=== PATIENT | female | born 1930 | race Caucasian/White ===

== ENCOUNTER 2017-06-19 13:07 | Inpatient (IN) | payer MEDICARE, OTHER ==
--- NOTE | 2017-06-19 14:19 | RAD ---
LEFT HIP TWO VIEWS: History: 86-year-old female with left hip pain following a fall from standing. FINDINGS: There is a minimally displaced minimally impacted left subcapital femoral neck fracture. Minimal bon y demineralization. Prominent vascular calcification. IMPRESSION: Minimally displaced impacted subcapital left femoral neck fracture with slight foreshortening. POS: [facility]
--- NOTE | 2017-06-19 14:20 | RAD ---
CHEST ONE VIEW: History: Fall, chest injury. Comparison: 03-22-17 FINDINGS: Cardiac silhouette is magnified and enlarged. Pulmonary vasculature is unremarkable. Lungs remain hy perinflated. Mediastinum is midline with aortic calcification. Osseous structures are demineralized. stop attacher leads overlie the chest. IMPRESSION: 1. Cardiomegaly. 2. COPD. 3. Atherosclerosis. POS: [facility]
--- NOTE | 2017-06-19 14:22 | RAD ---
AP PELVIS: Date: 06-19-17 History: Patient fell earlier today from a standing position and landed on left hip. Patient has lef t hip pain and pain upon movement of the left hip. Comparison: 03-22-17 FINDINGS: There has been interval development of a subcapital left femoral neck fracture with the distal fract ure fragment slightly displaced medially. There is a right total hip prosthesis also noted in place which was not present on the prior exam. No additional fracture seen. There is no evidence of a disl ocation. There is osteopenia. IMPRESSION: 1. Slightly displaced subcapital left femoral neck fracture. 2. Right total hip prosthesis. POS: [facility]
[2017-06-19 14:49] LABS: PTT 35.2 SEC (22.9-36.1); Prothrombin Time 16.9 SEC (12.0-14.7)
[2017-06-19 14:50] LABS: Hematocrit 30.8 % (36.0-47.0); Red Blood Cell (RBC) Count 3.19 mill/uL (4.20-5.40); White Blood Cell (WBC) Count 18.5 thou/uL (4.8-10.8)
[2017-06-19 15:05] LABS: ALT (SGPT) 14 U/L (8-55); AST (SGOT) 31 U/L (5-34); Alkaline Phosphatase 106 U/L (40-150); Anion Gap 12 mmol/L (10-20); BUN (Urea Nitrogen) 40 mg/dL (9.8-20.1); Calc. Creatinine Clearance 0 mL/min (70-130); Calcium 9.6 mg/dL (7.8-10.44); Carbon Dioxide 24 mmol/L (23-31); Chloride 101 mmol/L (98-107); Estimated GFR-MDRD 22; Globulin 4.8 g/dL (2.4-3.5); Protein, Total 8.4 g/dL (6.0-8.3)
[2017-06-19 15:24] LABS: Anisocytosis MODERATE=16-30 cells (100X) (0-5/hpf); Band 15 % (5-11); Basophilic Stippling SLIGHT = 1-2 cells (100X) (None Seen); Elliptocytes MODERATE= 6-15 cells (100X) (0-1/hpf); Metamyelocyte 4 % (0-0); Myelocyte 12 % (0-0); Neutrophil 25 % (42-75); Nucleated RBC 4 % (0); Ovalocytes SLIGHT = 2-5 cells (100X) (0-1/hpf); Polychromasia MODERATE = 3-4 cells (100X) (0-2/hpf); Reactive Lymphocytes 1 % (0-10); Schistocytes SLIGHT = 2-5 cells (100X) (0-1/hpf); Spherocytes SLIGHT = 1-5 cells (100X) (None Seen)
[2017-06-19] MEDS ORDERED: Morphine 10 MG/ML VIAL ONE (16:03)
[2017-06-19] MEDS ORDERED: Ondansetron HCl/PF 4 MG/2 ML Vial IVP PRN (17:11)
[2017-06-19] MEDS ORDERED: Dextrose 50% Abboject 50 ML SYRINGE SLOW IVP PRN (17:11)
[2017-06-19] MEDS ORDERED: hydrALAZINE 20 MG/ML VIAL SLOW IVP PRN (17:11)
[2017-06-19] MEDS ORDERED: Dextrose 5% in Water 1,000 ML IV PRN (17:11)
[2017-06-19] MEDS ORDERED: traMADol HCl 50 MG TAB PO PRN (17:11)
[2017-06-19] MEDS ORDERED: Morphine 4 MG/ML Carpuject IVP PRN (17:11)
[2017-06-19] MEDS ORDERED: Ondansetron ODT 4 MG TAB PO PRN (17:11)
--- NOTE | 2017-06-19 18:10 | HP ---
DATE OF ADMISSION: 05/19/2017 REQUESTING PHYSICIAN: Loi Fischer M.D. ATTENDING PHYSICIAN: Armin Macedo M.D. CONSULTATIONS: Orthopedics, Dylon Garcia M.D. HISTORY OF PRESENT ILLNESS: The patient is an 86-year-old woman who was at her assisted l iving facility today, awaiting to go to a doctor's appointment when she fell in the lobby area. The patient denied any loss of consciousness. She was immediately tentative to nearby attendance, denise chapman to the emergency department, evaluated and examined and noted to have a left femoral neck fractu re at which time we were asked to evaluate the patient for admission and obtained orthopedic consult ation. ALLERGIES: None. CURRENT MEDICATIONS: The patient is trying to get her medication list from the facility that her so n is attempting to help with that. Otherwise, we are awaiting her medication list. PAST MEDICAL HISTORY: Anemia, hyperkalemia, thrombocytopenia, hypertension, and rheumatoid arthriti s. PAST SURGICAL HISTORY: Right partial hip replacement and . SOCIAL HISTORY: The patient drinks rarely. Denies drug use and no tobacco use. The patient is a r esident of assisted living at the [facility]. REVIEW OF SYSTEMS: A ten-point review of systems is negative unless otherwise stated. PHYSICAL EXAMINATION: VITAL SIGNS: Blood pressure 142/63, heart rate 75, respirations 18, and oxygen saturation is 98% on room air. GENERAL: The patient is resting comfortably, sitting in the emergency room bed. She is alert and o riented x3. [address] coma scale is 15. HEENT: Normocephalic and atraumatic. Eyes: Extraocular motion intact. PERRLA bilaterally. Ears are atraumatic without discharge. Nose is atraumatic without discharge. Oropharynx is clear. NECK: Nontender. Trachea is midline. No JVD. CHEST: Clear to auscultation with good inspiratory and expiratory effort. HEART: Regular rate and rhythm. ABDOMEN: Soft, flat, and nontender. PELVIS: Stable. The patient is tender to palpation to left hip area. EXTREMITIES: Neurovascularly intact x4. Strength is 5/5. BACK: Nontender and atraumatic. LABORATORY FINDINGS: White blood cell count 18.5, hemoglobin 9.1, hematocrit 30.8, and platelets 10 8. Sodium 132, potassium 5.2, chloride 101, CO2 of 24, BUN 40, creatinine 2.16, and glucose 107. L FTs are unremarkable. INR 1.3, PT 16.9, PTT 35.2. RADIOGRAPHS: AP pelvis show slightly displaced subcapital left femoral neck fracture. Two views of the hip show minimally displaced impacted subcapital left femoral neck fracture. AP repeat chest s hows cardiomegaly, COPD, and atherosclerosis. ASSESSMENT AND PLAN: 1. Status post ground level fall. 2. Left hip fracture. PLAN: Plan will be to admit the patient to the surgical floor. Per conversation with Dr. Garcia, the patient will have surgery tomorrow for her hip fracture. We will do pain control, pulmonary hari let, gastritis, mechanical DVT prophylaxis. The evaluation examination, laboratory and radiographic findings were all discussed with the patient, Dr. Macedo and her family at time of dictation and all were in agreement with this plan. Questions were answered at that time.
[2017-06-19] MEDS: Acetaminophen 325 MG TAB PO SCH (18:26)
[2017-06-19] MEDS: Sodium Chloride 0.9% 1,000 ML IV SCH (18:26)
[2017-06-19 19:16] VITALS: BMI 19.5
[2017-06-19] MEDS: Famotidine/PF 20 mg/2ml Vial SLOW IVP SCH (21:06)
[2017-06-19] MEDS: traMADol HCl 50 MG TAB PO PRN (21:07)
[2017-06-19] MEDS ORDERED: CEFAZOLIN/Water 2 GM/20 ML SYRINGE SLOW IVP SCH (21:15)
[2017-06-20] MEDS: Acetaminophen 325 MG TAB PO SCH ×4 (00:03→18:35)
--- NOTE | 2017-06-20 00:06 | CON ---
DATE OF CONSULTATION: 06/19/2017 HISTORY OF PRESENT ILLNESS: Ms. Alexander is an 86-year-old white female, who lives at an [facility] facility. The patient was waiting to go to a doctor's appointment, fell in the lobby area of [facility] and had immediate pain in the left hip area. The patient was brought to the emergency room and x-rays revealed an impacted femoral neck fracture of the left hip. The patient denies neurologic complaints in the left lower extremity. PAST MEDICAL HISTORY AND MEDICAL ILLNESSES: Hypertension, rheumatoid arthritis, hyperkalemia, throm bocytopenia, and history of anemia. ALLERGIES: None. CURRENT MEDICATIONS: Please see list from the assisted living facility. PAST SURGICAL HISTORY: The patient had proximal femoral replacement of the right hip approximately 3 months ago and has had a in the past. PHYSICAL EXAMINATION: GENERAL: The patient is a very pleasant female, alert and oriented x3. VITAL SIGNS: The patient is afebrile, blood pressure 142/63, heart rate 75, respiratory rate 18. HEENT: Unremarkable for age. Cranial nerves II through XII are grossly intact. EXTREMITIES: The patient is able to move both upper extremities without pain. She has good range o f motion in the right hip without pain, well-healed scar in the lateral aspect of the hip. The left hip skin is in good condition. Left lower extremity is neurovascularly intact. No attempts were m elen at movement of the hips since it is known that she has a fracture. IMPRESSION: 1. Impacted subcapital femoral neck fracture of the left hip. 2. Hypertension. 3. Rheumatoid arthritis. 4. History of anemia. 5. Thrombocytopenia. PLAN: The patient will be admitted to the surgical floor as far as her left hip is concerned since its impacted femoral neck fracture and there is no significant arthritis in the left hip. She would be best served with multiple cannulated screws to the left hip to allow the fracture to heal. She keeps her own bone. The potential risks with the condition of surgery include, but are not limited to infection, bleeding, pain, damage to blood vessels or nerves, nonunion, malunion. The patient addi lópez require additional surgery. She may ultimately require a proximal femoral replacement. The patie nt and her son's questions were answered and agreed to the procedure. We will schedule this for paty .
[2017-06-20] MEDS: Sodium Chloride 0.9% 1,000 ML IV SCH ×3 (02:00→19:17)
[2017-06-20 04:33] LABS: Anion Gap 11 mmol/L (10-20); BUN (Urea Nitrogen) 36 mg/dL (9.8-20.1); Calc. Creatinine Clearance 16 mL/min (70-130); Calcium 8.6 mg/dL (7.8-10.44); Carbon Dioxide 22 mmol/L (23-31); Chloride 107 mmol/L (98-107); Estimated GFR-MDRD 23; Magnesium 1.9 mg/dL (1.6-2.6); Phosphorus 4.1 mg/dL (2.3-4.7)
[2017-06-20 04:58] LABS: Hematocrit 27.1 % (36.0-47.0); Mean Platelet Volume 10.4 fL (7.4-10.4); Red Blood Cell (RBC) Count 2.79 mill/uL (4.20-5.40); White Blood Cell (WBC) Count 19.8 thou/uL (4.8-10.8)
[2017-06-20 04:59] LABS: Band 13 % (5-11); Metamyelocyte 2 % (0-0); Neutrophil 31 % (42-75); Nucleated RBC 5 % (0)
[2017-06-20] MEDS ORDERED: Tetracaine HCl/PF 1% 20 MG/2 ML AMP ONE (07:33)
[2017-06-20] MEDS ORDERED: CEFAZOLIN/Water 2 GM/20 ML SYRINGE ONE (09:00)
[2017-06-20] MEDS ORDERED: Fentanyl 100 MCG/2 ML VIAL ONE (09:57)
[2017-06-20] MEDS ORDERED: Propofol 200 MG/20 ML VIAL ONE (10:09)
[2017-06-20] MEDS ORDERED: Ondansetron HCl/PF 4 MG/2 ML Vial ONE (10:09)
[2017-06-20] MEDS ORDERED: Lidocaine 1% PF 5 ML VIAL ONE (10:09)
[2017-06-20] MEDS ORDERED: Ketorolac Tromethamine 30 MG/ML VIAL ONE (10:09)
[2017-06-20] MEDS ORDERED: Glycopyrrolate 0.2 MG/ML 5 ML SYRINGE ONE (10:09)
[2017-06-20] MEDS ORDERED: Bupivacaine PF 0.5% 30 ML VIAL ONE (10:43)
[2017-06-20] MEDS ORDERED: PROVENTIL INHALER 6.7 G (200 INHALATIONS) INH PRN (10:56)
[2017-06-20] MEDS ORDERED: DEXTROMETHORPHAN PO PRN (10:56)
[2017-06-20] MEDS ORDERED: Docusate Calcium (SURFAK) 240 MG CAP PO PRN (10:56)
[2017-06-20] MEDS ORDERED: BENZOCAINE PO PRN (10:56)
[2017-06-20] MEDS ORDERED: [UNRECOGNIZED DRUG - OTHER] PO PRN (10:56)
[2017-06-20] MEDS ORDERED: Acetaminophen 325 MG TAB PO PRN ×2 (10:56→11:21)
[2017-06-20] MEDS ORDERED: Ondansetron HCl/PF 4 MG/2 ML Vial IVP PRN ×2 (11:01→11:15)
[2017-06-20] MEDS ORDERED: Cepastat Lozenges 1 LOZ PO PRN (11:01)
[2017-06-20] MEDS ORDERED: Ondansetron ODT 4 MG TAB PO PRN (11:01)
[2017-06-20] MEDS ORDERED: Bisacodyl 10 MG SUPP PR PRN (11:01)
[2017-06-20] MEDS ORDERED: Fleet Enema 133 ML BOT PR PRN (11:01)
[2017-06-20] MEDS ORDERED: Milk Of Magnesia 30 ML UDCUP PO PRN (11:01)
--- NOTE | 2017-06-20 12:13 | RAD ---
THREE INTRAOPERATIVE FLUOROSCOPIC IMAGES LEFT HIP: 06/20/2017 HISTORY: ORIF. COMPARISON: 06/19/2017 FINDINGS: Fluoroscopic images demonstrate post surgical changes related to internal fixation of the subcapital left femoral neck fracture. Two screws transfix the left femoral neck fracture. No hardware compl ication is seen. No other interval change. IMPRESSION: Post surgical changes related to internal fixation of subcapital left femoral neck fracture. POS: [facility]
--- NOTE | 2017-06-20 13:28 | OP ---
DATE OF OPERATION: 06/20/2017 PREOPERATIVE DIAGNOSIS: Impacted femoral neck fracture of the left hip. POSTOPERATIVE DIAGNOSIS: Impacted femoral neck fracture of the left hip. PROCEDURE: Multiple cannulated screws of the impacted femoral neck fracture of the left hip. SURGEON: Dylon Garcia M.D. ANESTHESIA: General. TECHNIQUE: The patient was given preoperative IV antibiotics, taken to the operating room and place d in the supine position. Satisfactory general anesthesia was performed. The patient was placed on the fracture table. All bony prominences were well padded. The lateral aspect of the left hip and thigh were sterilely prepped and draped in the usual fashion. A 1 cm incision was made on the late ral aspect of the proximal thigh laterally and under fluoroscopic visualization, 2 guide pins were p laced up through the lateral aspect of the proximal femur into the femoral neck crossing the impacte d femoral neck fracture and into the femoral head. Proper placement of screws was verified with C-a rm with fluoroscopy, AP, lateral and multiple oblique views. The outer cortex was over reamed and t wo 7.3 cannulated screws were inserted into the femoral neck and head providing good internal fixati on and stability for the impacted femoral neck fracture. The wound was irrigated with antibiotic so lution. It was closed using 3-0 Rapide, 20 mL 0.5% Marcaine plain was injected in and around the in cision. The patient was taken off of the fracture table. She was awakened, extubated, and transfer red to recovery room in stable condition. ESTIMATED BLOOD LOSS: 10 mL. COMPLICATIONS: None.
[2017-06-20] MEDS: hydrALAZINE 25 MG TAB PO SCH (20:14)
[2017-06-20] MEDS: Ferrous Gluconate 324 MG TAB PO SCH (20:14)
[2017-06-20] MEDS: Famotidine/PF 20 mg/2ml Vial SLOW IVP SCH (20:14)
[2017-06-20] MEDS: Senokot S 8.6-50 MG TAB PO SCH (20:14)
[2017-06-20] MEDS: Hydroxychloroquine Sulfate 200 MG TAB PO SCH (20:15)
[2017-06-20] MEDS: Oxybutynin ER 5 MG TAB PO SCH (20:15)
--- NOTE | 2017-06-20 20:24 | PRG ---
DATE OF SERVICE: 06/20/2017 SUBJECTIVE: The patient is hospital day #2 status post ground level fall in which she sustained a l eft hip fracture. She is currently scheduled to go to the operating room with Dr. Garcia [facility]. She has been n.p.o. overnight. Her pain has been controlled and she has no current complaints . OBJECTIVE: VITAL SIGNS: Temperature is 98.2, heart rate 69, blood pressure 187/67, respirations are 16, oxygen saturation 98% on room air. GENERAL: The patient is resting comfortably in bed. She is alert and oriented x3. [place] is 15. HEENT: Unremarkable. HEART: Regular rate and rhythm. LUNGS: Clear to auscultation bilaterally with good inspiratory and expiratory effort. ABDOMEN: Soft, flat, nontender. EXTREMITIES: Neurovascularly intact. LABORATORY DATA: White blood cell count 19.8, hemoglobin 8.1, hematocrit 27.1, platelets 89. Sodiu m 135, potassium 4.6, chloride 107, CO2 of 22, BUN 36, creatinine 2.03, glucose 78, magnesium 1.9, p hosphorus 4.1. There are no radiographs to review this morning. ASSESSMENT AND PLAN: Status post ground level fall sustaining a left hip fracture, awaiting surgica l repair by Dr. Garcia. Postoperatively, we will continue pain management, pulmonary toilet, gastr itis prophylaxis, begin physical and occupational therapy, and ask rehabilitation to evaluate the pa tient. The evaluation was done with Dr. Sweeney on the surgical floor.
[2017-06-21] MEDS: Acetaminophen 325 MG TAB PO SCH ×5 (00:18→23:32)
[2017-06-21] MEDS: Sodium Chloride 0.9% 1,000 ML IV SCH ×3 (00:18→23:32)
[2017-06-21 04:44] LABS: Anion Gap 11 mmol/L (10-20); BUN (Urea Nitrogen) 33 mg/dL (9.8-20.1); Calc. Creatinine Clearance 18 mL/min (70-130); Calcium 8.5 mg/dL (7.8-10.44); Carbon Dioxide 20 mmol/L (23-31); Chloride 109 mmol/L (98-107); Estimated GFR-MDRD 28; Magnesium 1.6 mg/dL (1.6-2.6); Phosphorus 3.9 mg/dL (2.3-4.7)
[2017-06-21 05:05] LABS: Band 28 % (5-11); Elliptocytes SLIGHT = 2-5 cells (100X) (0-1/hpf); Hematocrit 28.9 % (36.0-47.0); Mean Platelet Volume 12.1 fL (7.4-10.4); Metamyelocyte 5 % (0-0); Myelocyte 3 % (0-0); Neutrophil 21 % (42-75); Nucleated RBC 3 % (0); Polychromasia SLIGHT = 2-3 cells (100X) (0-2/hpf); Reactive Lymphocytes 1 % (0-10); Red Blood Cell (RBC) Count 2.99 mill/uL (4.20-5.40); White Blood Cell (WBC) Count 29.3 thou/uL (4.8-10.8)
[2017-06-21] MEDS: Losartan 25 MG TAB PO SCH (09:00)
[2017-06-21] MEDS: hydrALAZINE 25 MG TAB PO SCH ×2 (09:00→20:04)
[2017-06-21] MEDS: predniSONE 5 MG TAB PO SCH (09:01)
[2017-06-21] MEDS: Oxybutynin ER 5 MG TAB PO SCH ×2 (09:01→20:05)
[2017-06-21] MEDS: Senokot S 8.6-50 MG TAB PO SCH ×2 (09:01→20:04)
[2017-06-21] MEDS: Multivitamin W/ Minerals 1 TAB PO SCH (09:01)
[2017-06-21] MEDS: Ferrous Gluconate 324 MG TAB PO SCH ×2 (09:01→20:05)
[2017-06-21] MEDS: Hydroxychloroquine Sulfate 200 MG TAB PO SCH ×2 (09:01→20:05)
[2017-06-21] MEDS: Furosemide 20 MG TAB PO SCH (09:01)
[2017-06-21] MEDS ORDERED: Magnesium Sulfate 3 GM in Sodium Chloride 0.9% 250 ML 250 ML IVPB SCH (19:00)
[2017-06-21] MEDS: Famotidine/PF 20 mg/2ml Vial SLOW IVP SCH (20:05)
--- NOTE | 2017-06-21 21:32 | PRG ---
DATE OF SERVICE: 06/21/2017 SUBJECTIVE: Ms. Alexander is status post multiple pinning of impacted femoral neck fracture of the le ft hip. Patient states that she is doing well and has very little pain. She has been able to work with physical therapy as far as getting out of bed. OBJECTIVE: GENERAL: The patient has been afebrile. VITAL SIGNS: Her last vital signs, pulse 75, respiratory rate 20, blood pressure 154/72, O2 saturat ion is 95%. EXTREMITIES: over the lateral aspect of the left thigh is healing very well. She has minimal swelling. The left lower extremity is neurovascularly intact. LABORATORY DATA: Shows hemoglobin is 8.7 and hematocrit is 28.9, which is actually higher than preo peratively. PLAN: The patient will continue to work with physical therapy. She may weightbear as tolerated on the left lower extremity. She will work on gait training and becoming more independent in getting o ut of bed.
--- NOTE | 2017-06-21 21:33 | PRG ---
DATE OF SERVICE: 06/21/2017 SUBJECTIVE: The patient is hospital day #3, postop day #1 status post ground level fall in which lew dobbins sustained a left hip fracture. The patient underwent open reduction and internal fixation of her hip fracture yesterday, which she tolerated well this morning. She is tolerating a diet. Her pain is controlled and she is waiting to begin working with physical and occupational therapy. PHYSICAL EXAMINATION: VITAL SIGNS: Temperature is 98.3, heart rate 70, blood pressure 154/75, respirations 16, oxygen sat uration is 95% on room air. GENERAL: The patient is resting comfortably in bed. She is alert and oriented x3. [place] coma sc garrett is 15. HEENT: Unremarkable. LUNGS: Clear to auscultation with moderate inspiratory and expiratory effort. The patient does hav e some scant crackles that do clear with cough and encouragement of taking deep breaths. HEART: Regular rate and rhythm. ABDOMEN: Soft, flat, nontender. Her surgical site is clean, dry, and intact. EXTREMITIES: She is neurovascularly intact x4 in all extremities. LABORATORY RESULTS: White blood cell count 29.3, hemoglobin 8.7, and platelets 87. Sodium 135, pot assium 5.0, chloride 109, CO2 of 20, BUN 33, creatinine 1.75, glucose 51, magnesium 1.6, phosphorus 3.9. There are no radiographs to review this morning. ASSESSMENT AND PLAN: 1. Status post ground level fall. 2. Left femoral neck fracture status post placement of multiple cannulated screws of the impacted f emoral neck fracture of the left hip. 3. Hypoglycemia. 4. Leukocytosis. Plan will be to continue pulmonary toilet, gastritis, mechanical deep venous thrombosis prophylaxis. Repeat labs in the morning. We will replace her electrolytes this morning. PT, OT evaluations an d rehab evaluation. The evaluation was done on the surgical floor with Dr. Sweeney.
[2017-06-22] MEDS: Acetaminophen 325 MG TAB PO SCH ×4 (00:17→18:13)
[2017-06-22] MEDS: traMADol HCl 50 MG TAB PO PRN (04:21)
[2017-06-22 04:37] LABS: Hematocrit 28.5 % (36.0-47.0); Mean Platelet Volume 11.4 fL (7.4-10.4); Red Blood Cell (RBC) Count 2.97 mill/uL (4.20-5.40); White Blood Cell (WBC) Count 40.1 thou/uL (4.8-10.8)
[2017-06-22 04:46] LABS: Band 14 % (5-11); Hematocrit 28.3 % (36.0-47.0); Metamyelocyte 7 % (0-0); Myelocyte 3 % (0-0); Neutrophil 19 % (42-75); Nucleated RBC 1 % (0); Ovalocytes MODERATE= 6-15 cells (100X) (0-1/hpf); Red Blood Cell (RBC) Count 2.93 mill/uL (4.20-5.40); White Blood Cell (WBC) Count 40.8 thou/uL (4.8-10.8)
[2017-06-22 05:10] LABS: Anion Gap 14 mmol/L (10-20); BUN (Urea Nitrogen) 30 mg/dL (9.8-20.1); Calc. Creatinine Clearance 18 mL/min (70-130); Calcium 8.6 mg/dL (7.8-10.44); Carbon Dioxide 17 mmol/L (23-31); Chloride 105 mmol/L (98-107); Estimated GFR-MDRD 27; Magnesium 2.6 mg/dL (1.6-2.6); Phosphorus 3.1 mg/dL (2.3-4.7)
[2017-06-22 08:11] LABS: Bilirubin Negative (Negative); Blood, Urine Trace (Negative); Glucose, Urine (Dipstick) Negative (Negative); Ketone, Urine Negative (Negative); Nitrite Negative (Negative); Protein, Urine (Dipstick) 30 mg/dL (Neg-Trace); Urobilinogen 0.2 mg/dL (0.2-1.0)
[2017-06-22 08:12] LABS: Bacteria/HPF None Seen HPF (None Seen); Hyaline Casts/LPF 0-3 HYALINE CAST LPF (0-3 Hyaline); RBC/HPF 0-3 HPF (0-3); Squamous Epithelial 0-3 HPF (0-3); WBC/HPF 0-3 HPF (0-3)
[2017-06-22 08:25] LABS: Yeast-All Forms None Seen HPF (None Seen)
--- NOTE | 2017-06-22 08:55 | RAD ---
CHEST 1 VIEW PORTABLE: HISTORY: An 87-year-old female with coughing. COMPARISON: 06/19/17. FINDINGS: Minimal cardiomegaly. Bilateral interstitial and linear parenchymal changes and pleural effusions, n ew from 06/19/17, evidence for congestive heart failure versus bilateral atypical pneumonitis. IMPRESSION: Cardiomegaly with bilateral vascular congestion and interstitial changes and pleural effusion changes having more the appearance of congestive heart failure versus atypical bilateral pneumonia or pneumo nitis. Short-term followup for clearing. POS: OFF
[2017-06-22] MEDS: hydrALAZINE 25 MG TAB PO SCH ×2 (09:03→21:49)
[2017-06-22] MEDS: Multivitamin W/ Minerals 1 TAB PO SCH (09:03)
[2017-06-22] MEDS: Oxybutynin ER 5 MG TAB PO SCH ×2 (09:03→21:49)
[2017-06-22] MEDS: Senokot S 8.6-50 MG TAB PO SCH ×3 (09:03→22:12)
[2017-06-22] MEDS: Losartan 25 MG TAB PO SCH (09:04)
[2017-06-22] MEDS: predniSONE 5 MG TAB PO SCH (09:04)
[2017-06-22] MEDS: Furosemide 20 MG TAB PO SCH (09:04)
[2017-06-22] MEDS: Ferrous Gluconate 324 MG TAB PO SCH ×2 (09:04→21:49)
[2017-06-22] MEDS: Hydroxychloroquine Sulfate 200 MG TAB PO SCH ×2 (09:04→21:50)
[2017-06-22] MEDS: Sodium Chloride 0.9% 1,000 ML IV SCH (09:05)
--- NOTE | 2017-06-22 13:17 | PRG-2 ---
DATE OF SERVICE: 06/22/2017 ATTENDING PHYSICIAN: Dr. Rush Sweeney SUBJECTIVE: This is an 87-year-old woman hospital day #4, postop day #2 status post ground level fa ll in which she sustained a left hip fracture. She underwent open reduction and internal fixation o f her hip fracture. Today she is tolerating pain well. Additionally, she is tolerating p.o. intake . The patient worked with physical therapy and occupational therapy yesterday. The patient has not had a bowel movement since admission. She is awaiting rehab evaluation and possible placement. Th e patient mentioned that she was on antibiotics for her sinusitis prior to admission for left hip fr acture; however, she is currently asymptomatic in that regard and antibiotic is not recommended at t his time. PHYSICAL EXAMINATION: VITAL SIGNS: Blood pressure 161/74, pulse 75, respiratory rate 24, O2 saturation 92% on 1 liter, te mperature 97.8 degrees Fahrenheit. GENERAL: The patient is resting comfortably in bed. She is alert and oriented x3. [place] is 15. HEENT: Head is atraumatic and normocephalic. LUNGS: Clear to auscultation bilaterally. Equal rise and fall of chest, no acute respiratory distr ess. She does have a dry cough on exam. The patient encouraged to keep taking deep breaths and usi ng incentive spirometer. CARDIOVASCULAR: Regular rate and rhythm. ABDOMEN: Soft, nontender. Surgical site is clean, dry, and intact. EXTREMITIES: Neurovascularly intact x4 in all extremities. LABORATORY DATA: CBC reveals a white blood cell count of 40.8, hemoglobin 8.8, hematocrit of 28.3, platelets of 92. BMP reveals sodium 132, potassium 4.3, chloride 105, bicarbonate 17, BUN of 30, creatinine of 1.78, and glucose of 150. Chest x-ray this morning shows cardiomegaly with bilateral vascular congestion and interstitial afrr ges. Pleural effusion changes have appearance of congestive heart failure versus atypical bilateral pneumonia or pneumonitis. ASSESSMENT AND PLAN: 1. Status post ground level fall day #4. 2. Postop day 2, status post open reduction internal fixation of left hip fracture. 3. Hypoglycemia, resolved. 4. Leukemoid reaction. 5. Hypertension. The patient to continue using incentive spirometer. A BNP was checked to evaluate for congestive he art failure exacerbation. The patient's blood pressure not well controlled on current medication re jose guadalupe. Metoprolol was changed to 100 mg b.i.d. Since the patient has not had a bowel movement sinc e admission, Lactulose was added daily until bowel movement. The patient is agreeable with rehab. Rehab will request patient have a bowel movement prior to acceptance. Of note, the elevated white b lood cell count is secondary to leukemoid reaction which is presumably from stress reaction after le ft hip fracture and surgery. There are no concerns regarding the white count at this time as patien t has remained afebrile, normotensive and asymptomatic. The patient was seen and evaluated by Dr. Abdoul Sweeney. The plan was discussed with the patient. All questions were answered.
[2017-06-22] MEDS ORDERED: Furosemide 20 MG TAB PO SCH (14:30)
[2017-06-22] MEDS: Metoprolol Tartrate 100 MG TAB PO SCH (21:50)
[2017-06-23] MEDS: Acetaminophen 325 MG TAB PO SCH ×3 (00:12→11:55)
[2017-06-23 04:57] LABS: Anion Gap 13 mmol/L (10-20); BUN (Urea Nitrogen) 29 mg/dL (9.8-20.1); Calc. Creatinine Clearance 20 mL/min (70-130); Carbon Dioxide 19 mmol/L (23-31); Chloride 103 mmol/L (98-107); Estimated GFR-MDRD 30; Magnesium 2.1 mg/dL (1.6-2.6)
[2017-06-23 04:59] LABS: Band 5 % (5-11); Hematocrit 27.1 % (36.0-47.0); Metamyelocyte 4 % (0-0); Myelocyte 2 % (0-0); Neutrophil 35 % (42-75); Nucleated RBC 1 % (0); Red Blood Cell (RBC) Count 2.79 mill/uL (4.20-5.40); White Blood Cell (WBC) Count 28.6 thou/uL (4.8-10.8)
[2017-06-23] MEDS: Metoprolol Tartrate 100 MG TAB PO SCH (09:01)
[2017-06-23] MEDS: Multivitamin W/ Minerals 1 TAB PO SCH (09:01)
[2017-06-23] MEDS: Ferrous Gluconate 324 MG TAB PO SCH (09:01)
[2017-06-23] MEDS: Hydroxychloroquine Sulfate 200 MG TAB PO SCH (09:02)
[2017-06-23] MEDS: Senokot S 8.6-50 MG TAB PO SCH (09:02)
[2017-06-23] MEDS: Losartan 25 MG TAB PO SCH (09:03)
[2017-06-23] MEDS: Furosemide 20 MG TAB PO SCH (09:03)
[2017-06-23] MEDS: hydrALAZINE 25 MG TAB PO SCH (09:03)
[2017-06-23] MEDS: Oxybutynin ER 5 MG TAB PO SCH (09:03)
[2017-06-23] MEDS: predniSONE 5 MG TAB PO SCH (09:04)
[2017-06-23] MEDS ORDERED: Furosemide 20 MG/2 ML VIAL SLOW IVP SCH (10:45)
[2017-06-23 11:57] VITALS: BP 129/57; TEMP 97.9
[2017-06-23] MEDS ORDERED: Furosemide 20 MG TAB PO SCH (12:15)
[2017-06-23] MEDS ORDERED: Epoetin 40,000 UNITS/ML VIAL SC SCH (14:15)
--- NOTE | 2017-06-23 17:17 | DIS ---
DATE OF ADMISSION: 06/19/2017 DATE OF DISCHARGE: 06/23/2017 BRIEF ADMISSION HISTORY AND PHYSICAL EXAMINATION FINDINGS: This is an 87-year-old woman who had a g round level fall, sustained a left hip fracture. PRINCIPAL PROCEDURES: On 06/20/2017, she underwent multiple cannulated screws impacted femoral neck fracture of the left hip. HOSPITAL COURSE: The patient continued to do well postoperatively. On the surgical floor, she was noted to have a large spike in white blood cell count with no infectious process and is continuing t o trend down. She has had bowel movements. Chemistry seems to be improving. Also BNP has been dec reasing as well. Vital signs have been stable. She remained on 2 liters of nasal cannula of oxygen , but lung sounds remain clear. The patient was cleared for discharge after administration of anoth er 20 [address] of [address]ix by Dr. Sweeney at bedside, to be moved over to inpatient rehabilitation. DISCHARGE CONDITION: Fair. DISCHARGE DISPOSITION: To inpatient rehabilitation. All questions were answered at bedside. We wi ll also contact Dr. Vang at the patient's request for an update on the patient's condition. This is merely a trauma discharge summary, please refer to the chart for further information.
[2017-06-24] MEDS ORDERED: Furosemide 20 MG TAB PO SCH (09:00)
--- NOTE | 2017-06-24 10:45 | PQF ---
ELVIN ROMERO MICHEAL, [place] [id number] SURG A- [id number] CLINICAL DOCUMENTATION IMPROVEMENT CLARIFICATION FORM: ICD-10 Updated PLEASE DO AN ADDENDUM TO THE PROGRESS NOTE WITH ANY DOCUMENTATION UPDATES OR ADDITIONS AND CARRY THROUGH TO DC SUMMARY. THANK YOU. Date: 06-24-17 ATTN: [facility] [employer] Please exercise your independent, professional judgment in responding to the clarification form. Clinical indicators are provided on the bottom of this form for your review Please check appropriate box(s): [ ] Protein Calorie Malnutrition: [ ] Mild [ ] Moderate [ ] Severe [ ] Other Malnutrition (please specify) __ [ ] Underweight without malnutrition [ ] Cachexia [ ] Other diagnosis [ ] Unable to determine In addition, please specify: Present on Admission (POA): [ ] Yes [ ] No [ ] Unable to determine CLINICAL INDICATORS - SIGNS / SYMPTOMS / LABS BMI 19.5 NUTRITION ASSESSMENT: CACHECTIC APPEARANCE MUSCLE/FAT WASTING TO ARMS, CHEST, CLAVICLES WOUNDCARE ASSESSMENT 115 : DTI - BACK LEFT BUTTOCK PU STAGE 2 ER: 3+ EDEMA LE PRESENT RISK FACTORS H&P ADVANCED AGE ANEMIA TREATMENT: NUTRITION ASSESSMENT - RECOMMEND: CONTINUE HEART HEALTHY LOW SODIUM DIET KATLIN DAILY SUPPLEMENT VITAMIN C 500 MG W/ ZINC SULFATE 220 MG DAILY X 14 DAYS TO PROMOTE WOUND HEALING THANK YOU, AYANNA (This form is maintained as a part of the permanent medical record) 2014 [employer]. All Rights Reserved Ayanna Kinney RN, BS [email or web address] [facility] CENTERMichaela
--- NOTE | 2017-08-08 16:46 | EKG ---
Test Reason : Blood Pressure : / mmHG Vent. Rate : 077 BPM Atrial Rate : 077 BPM P-R Int : 172 ms QRS Dur : 074 ms QT Int : 380 ms P-R-T Axes : 064 070 066 degrees QTc Int : 430 ms Normal sinus rhythm Normal ECG Confirmed by ALONZO ALDRICH, MARVIN ([id number]), tape editor AILYN STERLING ([id number]) on 08/08/2017 4:46:33 PM Referred By: Confirmed By:MARVIN ROSADO MD
== END 2017-06-23 15:43 | DRG 482 ==
LOC: ERS 13:07 → SURG A 14:09
PROVIDERS: ADMIT Surgery; ATTEND Surgery
PROC: 0QS704Z Reposition Left Upper Femur with Internal Fixation Device, Open Approach (ICD-10-PCS; principal; 2017-06-20)
PROC: 30233N1 Transfusion of Nonautologous Red Blood Cells into Peripheral Vein, Percutaneous Approach (ICD-10-PCS; 2017-06-20)
DX: S72.012A Unspecified intracapsular fracture of left femur, initial encounter for closed fracture (principal); L89.322 Pressure ulcer of left buttock, stage 2; D69.6 Thrombocytopenia, unspecified; M06.9 Rheumatoid arthritis, unspecified; I10 Essential (primary) hypertension; W18.30XA Fall on same level, unspecified, initial encounter; Y92.098 Other place in other non-institutional residence as the place of occurrence of the external cause; Z96.641 Presence of right artificial hip joint; E16.2 Hypoglycemia, unspecified; D72.823 Leukemoid reaction
CPT/HCPCS: 36415; 36416; 36430; 71010; 72170; 76001; 80048; 80053; 81003; 81015; 83735; 83880; 84100; 85025; 85027; 85610; 85730; 86850; 86900; 86901; 87040; 87086; 93005; 94640; 96374; C1713; C1769; G8978-GP-CK; G8979-GP-CJ; G8987-GO-CM; G8988-GO-CK; J0360; J1885; J2001; J2270; J2405; J2704; J3010; J3475; J7050; J7620; P9016; S0020; S0028

== ENCOUNTER 2017-08-01 14:11 | Emergency (ER) | payer MEDICARE, OTHER ==
[2017-08-01] MEDS ORDERED: traMADol HCl 50 MG TAB ONE (15:34)
== END 2017-08-01 15:47 | disposition home or self-care (01) ==
LOC: ERS 14:11
DX: H60.91 Unspecified otitis externa, right ear (principal); H66.91 Otitis media, unspecified, right ear; I10 Essential (primary) hypertension; D64.9 Anemia, unspecified; E87.5 Hyperkalemia; D69.6 Thrombocytopenia, unspecified; M19.90 Unspecified osteoarthritis, unspecified site
CPT/HCPCS: 99282

== ENCOUNTER 2017-08-26 11:49 | Outpatient (CLI) | payer MEDICARE, OTHER | END 2017-08-26 11:50 | disposition home or self-care (01) | LOC: BICRAD 11:49 | PROVIDERS: ATTEND Internal Medicine | DX: R05 Cough (principal); J18.9 Pneumonia, unspecified organism | CPT/HCPCS: 71046 ==

== ENCOUNTER 2017-09-02 15:09 | Outpatient (CLI) | payer MEDICARE | END 2017-09-02 15:10 | disposition home or self-care (01) | LOC: BICRAD 15:09 | PROVIDERS: ATTEND Internal Medicine | DX: R05 Cough (principal); J98.4 Other disorders of lung | CPT/HCPCS: 71046 ==

== ENCOUNTER 2017-09-28 12:13 | Inpatient (IN) | payer MEDICARE ==
[2017-09-28 13:21] LABS: Hemoglobin 8.5 g/dL (12.0-16.0); Mean Corpuscular Hemoglobin 30.1 pg (27.0-31.0); RBC Distribution Width 27.7 % (11.5-14.5); Red Blood Cell (RBC) Count 2.81 mill/uL (4.20-5.40); White Blood Cell (WBC) Count 29.8 thou/uL (4.8-10.8)
[2017-09-28] MEDS ORDERED: Clindamycin/D5W 600 mg/50 ml Premix Bag ONE (13:27)
[2017-09-28 13:34] LABS: ALT (SGPT) 19 U/L (8-55); AST (SGOT) 39 U/L (5-34); Albumin 3.3 g/dL (3.4-4.8); Alkaline Phosphatase 126 U/L (40-150); Anion Gap 15 mmol/L (10-20); BUN (Urea Nitrogen) 38 mg/dL (9.8-20.1); Bilirubin, Total 1.7 mg/dL (0.2-1.2); Calc. Creatinine Clearance 0 mL/min (70-130); Calcium 9.6 mg/dL (7.8-10.44); Carbon Dioxide 22 mmol/L (23-31); Chloride 100 mmol/L (98-107); Estimated GFR-MDRD 20; Globulin 5.1 g/dL (2.4-3.5); Glucose 104 mg/dL (83-110); Protein, Total 8.4 g/dL (6.0-8.3); Sodium 132 mmol/L (136-145)
[2017-09-28 13:35] LABS: Acanthocytes SLIGHT = 1-5 cells (100X) (None Seen); Anisocytosis MODERATE=16-30 cells (100X) (0-5/hpf); Band 15 % (5-11); Basophilic Stippling SLIGHT = 1-2 cells (100X) (None Seen); Elliptocytes SLIGHT = 2-5 cells (100X) (0-1/hpf); Large Platelets SLIGHT; Lymphocytes 14 % (21-51); MDiff Complete? YES; Macrocytosis SLIGHT = 6-15 cells (100X) (0-5/hpf); Mean Platelet Volume 12.9 fL (7.4-10.4); Metamyelocyte 3 % (0-0); Monocytes 26 % (0-10); Myelocyte 5 % (0-0); Neutrophil 35 % (42-75); Nucleated RBC 4 % (0); Ovalocytes SLIGHT = 2-5 cells (100X) (0-1/hpf); PLT Morphology Comment Appears Adequate; Platelet Count 210 thou/uL (130-400); Poikilocytosis MODERATE=16-30 cells (100X) (0-5/hpf); Polychromasia MODERATE = 3-4 cells (100X) (0-2/hpf); Promyelocytes 1 % (0-0); Reactive Lymphocytes 1 % (0-10); Schistocytes SLIGHT = 2-5 cells (100X) (0-1/hpf); Spherocytes SLIGHT = 1-5 cells (100X) (None Seen); Target Cells SLIGHT = 2-5 cells (100X) (0-1/hpf); Tear Drops SLIGHT = 2-5 cells (100X) (0-1/hpf)
[2017-09-28 13:39] LABS: CKMB 4.7 ng/mL (0-6.6); Troponin I 0.015 ng/mL (< 0.028)
[2017-09-28] MEDS ORDERED: Furosemide 20 MG/2 ML VIAL ONE (14:00)
--- NOTE | 2017-09-28 14:08 | RAD ---
AP PELVIS: Date: 09/28/17 HISTORY: Pelvic pain and pain to right hip. FINDINGS: The bones appear demineralized. Pelvic ring appears intact without evidence of fracture. Right hip pr osthesis is in place. There are also orthopedic screws present within the left hip. Vascular calcific ations are seen. No acute process demonstrated. IMPRESSION: No acute findings. POS: [facility]
--- NOTE | 2017-09-28 14:09 | RAD ---
LEFT HIP 2 VIEWS: Date: 09/28/17 HISTORY: Pain. COMPARISON: None. FINDINGS: Two views of the left hip demonstrate a left hip arthroplasty. No obvious evidence of complication or lucency. Vascular calcifications are noted. IMPRESSION: Unremarkable left hip. POS: [facility]
[2017-09-28] MEDS ORDERED: Ondansetron ODT 4 MG TAB PO PRN (18:51)
[2017-09-28] MEDS ORDERED: Ondansetron HCl/PF 4 MG/2 ML Vial IVP PRN (18:51)
[2017-09-28] MEDS ORDERED: cloNIDine 0.1 MG TAB PO PRN (18:51)
[2017-09-28] MEDS ORDERED: hydrALAZINE 20 MG/ML VIAL SLOW IVP PRN (18:51)
[2017-09-28] MEDS: Sodium Chloride 0.9% 1,000 ML IV SCH (19:48)
[2017-09-28] MEDS: cefTRIAXone\\ROCEPHIN 2 GM in Sodium Chloride 0.9% 100 ML IVPB SCH (19:49)
--- NOTE | 2017-09-28 21:35 | ULT ---
ULTRASOUND WITH DOPPLER DUPLEX VENOUS LOWER EXTREMITY LEFT CPT: 39628 ICD-10-PCS: B54D HISTORY: Recent surgery with edema, pain, and erythema. TECHNIQUE: Color flow Doppler, spectral waveform analysis of pulsed Doppler, and olivo-scale imaging with ledy bandar and augmentation, were used to evaluate the bilateral common femoral, femoral, popliteal, mid wife ior tibial, and superficial femoral, veins; and the proximal portions of the profunda femoral and gre ater saphenous, veins. FINDINGS: Appropriate compressibility and flow within the imaged deep vein system of the left lower extremity w ithout evidence of DVT. Incidental note of prominent sized lymph nodes. IMPRESSION: 1. No DVT evident. 2. Prominent lymph nodes. Correlate clinically. 3. Soft tissue edema. POS: [facility]
[2017-09-28] MEDS: Vancomycin HCl 1 GM in Premix Bag 1 BAG IVPB SCH (22:22)
[2017-09-28] MEDS: Famotidine 20 MG TAB PO SCH (22:23)
--- NOTE | 2017-09-29 04:03 | HP ---
DATE OF ADMISSION: 09/28/2017 PRIMARY CARE PROVIDER: Dr. Mame Jo. CHIEF COMPLAINT: Right hip pain and left leg swelling. HISTORY OF PRESENT ILLNESS: This is an 87-year-old female who presents to [facility] Emergency Department and transfer from [facility] in [place], [place], complaining of initially right hip pain over the last week. The patient underwent evaluation in the emergency room including plain radiograph imaging showing no acute fracture or dislocation. The patient apparently had recen gabriella slipped out of a wheelchair injuring the leg at that time. The patient underwent general evaluat ion without specific acute process identified. The patient was also noted with an incidental finding of left lower extremity erythema, edema with likely cellulitis below the knee. The patient states s he initially saw a small blister form on the foot and smaller blister on the anterior henry approximat sierra 4 weeks prior to this evaluation. The patient states it was watched by the staff at [facility] with local wound care and topical applications. The patient denied any recent oral antibiotic t herapy, direct trauma or injury or increasing pain. The patient denies any prior similar symptoms or diagnosis of cellulitis. The patient denied any recent nail trauma or recent pedicure. The patient denied any documented fever or chills. The patient states her mobility is limited due to severe art hritis and history of several falls resulting in hip fractures with subsequent repair. The patient s tates she requires 1-2 person assist for short distance transfers to a wheelchair or in bed. In the emergency room, the patient received IV clindamycin 600 mg x1 dose in addition to Lasix 40 mg x1 dose and was referred to the Hospitalist Service for admission. PAST MEDICAL HISTORY: 1. Rheumatoid arthritis. 2. Hypertension. 3. History of multiple falls. 4. Myelodysplastic syndrome with Procrit injections. 5. Chronic macrocytic anemia. PAST SURGICAL HISTORY: 1. Status post right total hip arthroplasty. 2. Status post section. 3. Status post right femur with open reduction internal fixation. CURRENT MEDICATIONS: 1. Lovastatin 50 mg p.o. daily. 2. Metoprolol 100 mg p.o. b.i.d. 3. Theragran-M 1 tab p.o. daily. 4. Florastor 250 mg 1 tab p.o. daily. 5. Oxybutynin 10 mg p.o. b.i.d. 6. ProAir HFA two puffs inhaled q.4 hours p.r.n. 7. Potassium chloride 20 mEq one tab p.o. daily. 8. Lasix 40 mg 1 tab p.o. daily. 9. Ferrous gluconate 324 mg p.o. daily. 10. Hydroxychloroquine 200 mg p.o. b.i.d. 11. Procrit injections weekly. 12. Prednisone 5 mg 1 tab p.o. daily. 13. Hydralazine 25 mg p.o. b.i.d. ALLERGIES: No known drug allergies. FAMILY HISTORY: No inheritable diseases per patient report. SOCIAL HISTORY: No current alcohol, tobacco or illicit drug use. Patient resides at [facility] in [place], [place]. Requires 1-2% assistance for short distance transfers, wheelchair for long distan ce mobilization. History of multiple falls with hip fractures. REVIEW OF SYSTEMS: The following complete review of systems was negative, unless otherwise mentioned in the HPI or below: Constitutional: Weight loss or gain, ability to conduct usual activities. Sk in: Rash, itching. Eyes: Double vision, pain. ENT/Mouth: Nose bleeding, neck stiffness, pain, te nderness. Cardiovascular: Palpitations, dyspnea on exertion, orthopnea. Respiratory: Shortness of breath, wheezing, cough, hemoptysis, fever or night sweats. Gastrointestinal: Poor appetite, abdom inal pain, heartburn, nausea, vomiting, constipation, or diarrhea. Genitourinary: Urgency, frequenc y, dysuria, nocturia. Musculoskeletal: Pain, swelling. Neurologic/Psychiatric: Anxiety, depressio n. Allergy/Immunologic: Skin rash, bleeding tendency. Otherwise negative except as stated per HPI. PHYSICAL EXAMINATION: VITAL SIGNS: On admission, blood pressure 150/108, pulse 79, temperature is 98 degrees Fahrenheit, O 2 saturation 98% on room air. GENERAL APPEARANCE: This is an 87-year-old female, alert and oriented x3, pleasant, in no acute distress. HEENT: Pupils are equal, round, and reactive to light and accommodation. Extraocular muscles are in tact. No scleral icterus, no conjunctival injection. Nares patent. OP is clear. Oral mucosa dry a ppearing brown and white plaques noted on the tongue and soft palate. NECK: Supple, no cervical adenopathy, no thyromegaly, no carotid bruits, no JVD appreciated. Cervic al spine with full active and passive range of motion. No meningeal signs appreciated. CHEST: Coarse breath sounds in the bases bilaterally. CARDIOVASCULAR: S1, S2, without noted murmur. ABDOMEN: Rounded, soft, nontender, nondistended. Bowel sounds are positive in all four quadrants. There is no hepatosplenomegaly, no abdominal bruits, no rebound or guarding appreciated. EXTREMITIES: Left lower extremity with erythema from the dorsum of the foot to the proximal tibia. Pitting edema from the dorsum of the foot to the left hip region. Diffuse erythema noted with scatte red small blisters. Positive warmth to touch. Mild tenderness to palpation. Neurovascularly intact distally. Questionable ulceration in the toe webspace between the fourth and fifth toes on the left . NEUROLOGIC: Cranial nerves II-XII are grossly intact. No focal or lateralizing signs appreciated. PERTINENT LABORATORY AND X-RAY FINDINGS: Sodium 132, potassium 5.0, chloride 100, CO2 of 22, BUN 38, creatinine 2.28 with estimated GFR of 20, glucose 104. Lactic acid level 1.0, calcium 9.6, total bi lirubin 1.7, AST 39, ALT of 19, alkaline phosphatase 126, troponin I of 0.015. BNP 1468, albumin 3.3 . CBC showed a white blood cell count 29.8, hemoglobin 8.5, hematocrit 28, MCV 101, platelet count 2 10 with 35% neutrophils, 15% bands. Pelvic radiograph dated 09/28/2017 showed no acute findings. Ri ght hip prosthesis noted in place. Pelvic ring intact. Two views of the left hip dated 09/28/2017 s howed no acute findings. ASSESSMENT AND PLAN: 1. Acute left lower extremity cellulitis. The patient will be admitted to the medical floor. Likel y Staphylococcus or Streptococcal species. Start vancomycin 1 gram IV q.12 hours with additional Colby ephin 2 grams IV q.24 h ours. Blood cultures pending x2. We will continue local wound care and count includes the [facility] Wound Care service for the skin assessment. 2. Acute kidney injury on chronic kidney disease stage 4. We will initiate intravenous normal salin e at 50 mL per hour. Avoid nephrotoxic agents and contrast media. Repeat creatinine in the a.m. 3. Myelodysplastic syndrome. We will continue serial CBC assessment. Consult Hematology service fo r ongoing Procrit injections. No current evidence to suggest acute blood loss. 4. Chronic macrocytic anemia. Stable currently. See above for management. Repeat CBC in the a.m. 5. Severe deconditioning. Obtain PT evaluation in the a.m. General fall risk precautions. 6. History of falls. PT evaluation pending. 7. Prophylaxis. Hold sequential compression devices due to the lower extremity edema. Lovenox 30 m g subcutaneously q.24 hours, Pepcid 20 mg p.o. b.i.d. 8. CODE STATUS is FULL. Surrogate medical decision maker is patient's son.
[2017-09-29 05:50] LABS: ALT (SGPT) 12 U/L (8-55); AST (SGOT) 28 U/L (5-34); Albumin 2.5 g/dL (3.4-4.8); Alkaline Phosphatase 98 U/L (40-150); Anion Gap 12 mmol/L (10-20); BUN (Urea Nitrogen) 37 mg/dL (9.8-20.1); Bilirubin, Total 0.9 mg/dL (0.2-1.2); Calc. Creatinine Clearance 12 mL/min (70-130); Calcium 8.7 mg/dL (7.8-10.44); Carbon Dioxide 22 mmol/L (23-31); Chloride 102 mmol/L (98-107); Estimated GFR-MDRD 20; Globulin 4.2 g/dL (2.4-3.5); Glucose 77 mg/dL (83-110); Potassium 4.3 mmol/L (3.5-5.1); Protein, Total 6.7 g/dL (6.0-8.3); Sodium 132 mmol/L (136-145)
[2017-09-29 05:58] LABS: Hemoglobin 7.3 g/dL (12.0-16.0); Mean Corpuscular HGB CONC 30.2 g/dL (32.0-36.0); Mean Corpuscular Hemoglobin 29.9 pg (27.0-31.0); Mean Corpuscular Volume 99.1 fl (81.0-99.0); Mean Platelet Volume 10.9 fL (7.4-10.4); Platelet Count 167 thou/uL (130-400); RBC Distribution Width 27.8 % (11.5-14.5); Red Blood Cell (RBC) Count 2.45 mill/uL (4.20-5.40); White Blood Cell (WBC) Count 40.1 thou/uL (4.8-10.8)
[2017-09-29 06:23] LABS: Acanthocytes SLIGHT = 1-5 cells (100X) (None Seen); Anisocytosis MODERATE=16-30 cells (100X) (0-5/hpf); Band 12 % (5-11); Elliptocytes SLIGHT = 2-5 cells (100X) (0-1/hpf); Lymphocytes 10 % (21-51); MDiff Complete? YES; Metamyelocyte 2 % (0-0); Monocytes 47 % (0-10); Neutrophil 24 % (42-75); Nucleated RBC 4 % (0); PLT Morphology Comment Appears Adequate; Reactive Lymphocytes 5 % (0-10); Schistocytes MODERATE= 6-15 cells (100X) (0-1/hpf); Spherocytes SLIGHT = 1-5 cells (100X) (None Seen)
[2017-09-29] MEDS: Enoxaparin Sodium 30 MG/0.3 ML SYRINGE SC SCH (08:43)
[2017-09-29] MEDS: Vancomycin HCl 1 GM in Premix Bag 1 BAG IVPB SCH ×2 (08:43→20:04)
[2017-09-29 13:55] VITALS: BMI 17.4
[2017-09-29] MEDS ORDERED: Epoetin 40,000 UNITS/ML VIAL SC SCH (14:15)
[2017-09-29] MEDS: Sodium Chloride 0.9% 1,000 ML IV SCH (17:45)
--- NOTE | 2017-09-29 19:00 | PDOC.PN ---
- Subjective Encounter Start Date: 09/29/17 Encounter Start Time: 18:25 Subjective: f/u for LLE cellulitis on Rocephin and Vancomycin. Some improvement -: in redness but still sore. - Objective Resuscitation Status: Resuscitation Status FULL:Full Resuscitation MAR Reviewed: Yes Vital Signs & Weight: Vital Signs (12 hours) Temp Pulse Resp BP Pulse Ox 09/29/17 16:00 98.4 F 102 H 20 145/57 H 91 L 09/29/17 12:34 98.1 F 96 18 125/44 L 94 L 09/29/17 08:33 98.1 F 90 20 137/55 L 91 L 09/29/17 08:00 98.1 F 90 20 91 L Weight Admit Weight 96 lb 9.6 oz Weight 98 lb 6.4 oz Result Diagrams: 09/29/17 05:01 09/29/17 05:01 Additional Labs: Microbiology 09/28/17 12:58 Venous blood - Left Arm Blood Culture - Preliminary Specimen has been received and culture in progress. No Growth to date. 09/28/17 12:55 Venous blood - Left Arm Blood Culture - Preliminary Specimen has been received and culture in progress. No Growth to date. Laboratory Tests 03/22/17 03/22/17 03/22/17 11:25 11:25 16:44 WBC Hgb 10.6 L 10.6 L Plt Count 71 L 61 L Band Neuts % (Manual) Sodium Creatinine 1.84 H 03/23/17 09/28/17 09/28/17 04:41 12:55 12:55 WBC 29.8 H Hgb 9.0 L 8.5 L Plt Count Band Neuts % (Manual) 15 H Sodium 132 L Creatinine 2.28 H 09/29/17 05:01 WBC Hgb Plt Count Band Neuts % (Manual) 12 H Sodium Creatinine Radiology Reviewed by me: Yes (LLE sono - no DVT) Phys Exam - Physical Examination Constitutional: NAD HEENT: PERRLA, oral pharynx no lesions Neck: no JVD, supple diminished in bases Respiratory: no wheezing Cardiovascular: RRR Gastrointestinal: soft, non-tender, no distention, positive bowel sounds LLE with erythema to knee extending on medial thigh Musculoskeletal: pulses present, edema present Neurological: normal sensation, moves all 4 limbs Psychiatric: A&O x 3 Skin: normal turgor, cap refill <2 seconds Dx/Plan (1) Cellulitis of left lower extremity Code(s): L03.116 - CELLULITIS OF LEFT LOWER LIMB Status: Acute Comment: LLE involvement, continue Vancomycin and Rocephin, local WCT (2) Acute kidney failure Status: Acute Comment: minimal improvement, avoid nephrotoxic meds and contrast media, serial monitoring (3) CKD (chronic kidney disease), stage IV Code(s): N18.4 - CHRONIC KIDNEY DISEASE, STAGE 4 (SEVERE) Status: Chronic (4) Myelodysplasia (myelodysplastic syndrome) Code(s): D46.9 - MYELODYSPLASTIC SYNDROME, UNSPECIFIED Status: Chronic Comment: Procrit per Hematology service, appears to be worsening (5) Macrocytic anemia Code(s): D53.9 - NUTRITIONAL ANEMIA, UNSPECIFIED Status: Chronic Comment: Serial H/H monitoring, no evidence of acute blood loss (6) Physical deconditioning Code(s): R53.81 - OTHER MALAISE Status: Chronic Comment: PT for mobilization - Plan continue antibiotics, PT/OT, social media executive, out of bed/ambulate Stable overall -: Saline Lock IVF's -: Continue Rocephin and Vancomycin -: WCT for local care -: Dietary supplements * AM lab: BMP, CBC
[2017-09-29] MEDS: cefTRIAXone\\ROCEPHIN 2 GM in Sodium Chloride 0.9% 100 ML IVPB SCH (19:57)
[2017-09-29] MEDS: Famotidine 20 MG TAB PO SCH (20:05)
[2017-09-30 05:39] LABS: Band 10 % (5-11); Hemoglobin 7.4 g/dL (12.0-16.0); Hypochromia SLIGHT = 6-15 cells (100X) (0-5/hpf); Lymphocytes 14 % (21-51); MDiff Complete? YES; Mean Corpuscular HGB CONC 29.9 g/dL (32.0-36.0); Mean Corpuscular Hemoglobin 29.7 pg (27.0-31.0); Mean Corpuscular Volume 99.3 fl (81.0-99.0); Mean Platelet Volume 9.4 fL (7.4-10.4); Metamyelocyte 1 % (0-0); Microcytosis SLIGHT = 6-15 cells (100X) (0-5/hpf); Monocytes 39 % (0-10); Neutrophil 36 % (42-75); Ovalocytes MODERATE= 6-15 cells (100X) (0-1/hpf); PLT Morphology Comment Appears Adequate; Platelet Count 159 thou/uL (130-400); RBC Distribution Width 27.4 % (11.5-14.5); Target Cells SLIGHT = 2-5 cells (100X) (0-1/hpf); White Blood Cell (WBC) Count 39.9 thou/uL (4.8-10.8)
[2017-09-30 05:49] LABS: Anion Gap 14 mmol/L (10-20); BUN (Urea Nitrogen) 28 mg/dL (9.8-20.1); Calc. Creatinine Clearance 14 mL/min (70-130); Calcium 8.5 mg/dL (7.8-10.44); Carbon Dioxide 21 mmol/L (23-31); Chloride 103 mmol/L (98-107); Estimated GFR-MDRD 23; Glucose 86 mg/dL (83-110); Potassium 4.1 mmol/L (3.5-5.1); Sodium 134 mmol/L (136-145)
[2017-09-30] MEDS: Enoxaparin Sodium 30 MG/0.3 ML SYRINGE SC SCH (08:48)
[2017-09-30] MEDS: Vancomycin HCl 1 GM in Premix Bag 1 BAG IVPB SCH ×2 (08:49→20:37)
--- NOTE | 2017-09-30 13:56 | PQF ---
CLINICAL DOCUMENTATION IMPROVEMENT CLARIFICATION FORM: ICD-10 Updated PLEASE DO AN ADDENDUM TO THE PROGRESS NOTE WITH ANY DOCUMENTATION UPDATES OR ADDITIONS AND CARRY THROUGH TO DC SUMMARY. THANK YOU. Date: 09/30/17 ATTN: DR. GRACIA Please exercise your independent, professional judgment in responding to the clarification form. Clinical indicators are provided on the bottom of this form for your review Please check appropriate box(s): [ x ] Protein Calorie Malnutrition: [ ] Mild [ x ] Moderate [ ] Severe [ ] Other Malnutrition (please specify) __ [ ] Underweight without malnutrition [ ] Cachexia [ ] Other diagnosis [ ] Unable to determine In addition, please specify: Present on Admission (POA): [ x ] Yes [ ] No [ ] Unable to determine CLINICAL INDICATORS - SIGNS / SYMPTOMS / LABS DIETARY NOTE 09/29: "MUSCLE WASTING NOTED TO TEMPLES, CLAVICLES, AND BICEPS. FAT WASTING NOTED TO RIBS/CHEST. 33% WT LOSS OVER LAST 3 YEARS." BMI 17.4 ALBUMIN 2.5 RISKS: CHRONIC DISEASE POOR WOUND HEALING TREATMENT: DIETARY CONSULT NUTRITIONAL SUPPLEMENTS Moderate Malnutrition (in acute illness) Energy Intake: <75% of estimated energy requirement for > 7 days Weight Loss: 1-2%/1 week; 5%/ 1 month; 7.5%/3 months Other: mild body fat loss; mild muscle mass loss; mild fluid accumulation; Severe Malnutrition (in acute illness) Energy Intake: < 50% of estimated energy requirement for > 5 days Weight Loss: >1-2%/1 week; >5%/1 month; >7.5%/3 months Other: moderate body fat loss; moderate muscle mass loss; moderate- severe fluid accumulation; measurably reduced frozen food selector strength Moderate Malnutrition (in chronic illness) Energy Intake: <75% of estimated energy requirement for >1 month [employer] Professor [employer] Winform ViewerWeight Loss: 5%/1 month; 7.5 %/3 months; 10%/6 months; 20%/1 year Other: mild body fat loss; mild muscle mass loss; mild fluid accumulation Severe Malnutrition (in chronic illness) Energy Intake: <75% of estimated energy requirement for >1 month Weight Loss: >5%/1 month; >7.5%/3 months; >10%/6 months; >20%/1 year Other: severe body fat loss; severe muscle mass loss; severe fluid accumulation ; measurably reduced frozen food selector strength (This form is maintained as a part of the permanent medical record) 2014 [employer] All Rights Reserved LASHELL [email or web address] Office: [phone] [facility]
[2017-09-30] MEDS: Famotidine 20 MG TAB PO SCH (20:10)
[2017-09-30] MEDS: cefTRIAXone\\ROCEPHIN 2 GM in Sodium Chloride 0.9% 100 ML IVPB SCH (20:11)
--- NOTE | 2017-09-30 20:20 | PDOC.PN ---
- Subjective Encounter Start Date: 09/30/17 Encounter Start Time: 10:15 Subjective: f/u for LLE cellulitis on Rocephin and Vancomycin. Mild improvement. - Objective Resuscitation Status: Resuscitation Status FULL:Full Resuscitation MAR Reviewed: Yes Vital Signs & Weight: Vital Signs (12 hours) Temp Pulse Resp BP Pulse Ox Pulse Ox Pulse Ox 09/30/17 09:44 90 L 88 L 09/30/17 08:44 97.7 F 116 H 20 160/63 H 92 L Weight Admit Weight 96 lb 9.6 oz Weight 98 lb 6.4 oz Result Diagrams: 09/30/17 05:06 09/30/17 05:06 Additional Labs: Microbiology 09/28/17 12:58 Venous blood - Left Arm Blood Culture - Preliminary Specimen has been received and culture in progress. No Growth to date. 09/28/17 12:58 Venous blood - Left Arm Blood Culture - Preliminary NO GROWTH AT 48 HOURS 09/28/17 12:55 Venous blood - Left Arm Blood Culture - Preliminary Specimen has been received and culture in progress. No Growth to date. 09/28/17 12:55 Venous blood - Left Arm Blood Culture - Preliminary NO GROWTH AT 48 HOURS Laboratory Tests 03/22/17 03/22/17 03/22/17 11:25 11:25 16:44 WBC Hgb 10.6 L 10.6 L Plt Count 71 L 61 L Neutrophils % (Manual) Band Neuts % (Manual) Sodium Creatinine 1.84 H 03/23/17 09/28/17 09/28/17 04:41 12:55 12:55 WBC 29.8 H Hgb 9.0 L 8.5 L Plt Count Neutrophils % (Manual) Band Neuts % (Manual) 15 H Sodium 132 L Creatinine 2.28 H 09/29/17 09/29/17 09/30/17 05:01 05:01 05:06 WBC 40.1 H* Hgb 7.3 L Plt Count Neutrophils % (Manual) 24 L 36 L Band Neuts % (Manual) 12 H 10 Sodium Creatinine 2.28 H Phys Exam - Physical Examination ill-appearing, alert, responsive HEENT: PERRLA, oral pharynx no lesions Neck: no JVD, supple Respiratory: no wheezing, clear to auscultation bilateral Cardiovascular: RRR Gastrointestinal: soft, non-tender, no distention, positive bowel sounds LLE with edema and erythema with kerlex wrap in place Musculoskeletal: pulses present, edema present Neurological: moves all 4 limbs Psychiatric: A&O x 3 Skin: normal turgor, cap refill <2 seconds Dx/Plan (1) Cellulitis of left lower extremity Code(s): L03.116 - CELLULITIS OF LEFT LOWER LIMB Status: Acute Comment: LLE involvement, continue Vancomycin and Rocephin, local WCT (2) Acute kidney failure Status: Acute Comment: minimal improvement, avoid nephrotoxic meds and contrast media, serial monitoring (3) CKD (chronic kidney disease), stage IV Code(s): N18.4 - CHRONIC KIDNEY DISEASE, STAGE 4 (SEVERE) Status: Chronic (4) Myelodysplasia (myelodysplastic syndrome) Code(s): D46.9 - MYELODYSPLASTIC SYNDROME, UNSPECIFIED Status: Chronic Comment: Procrit per Hematology service, appears to be worsening, CBC in am (5) Macrocytic anemia Code(s): D53.9 - NUTRITIONAL ANEMIA, UNSPECIFIED Status: Chronic Comment: Serial H/H monitoring, no evidence of acute blood loss (6) Physical deconditioning Code(s): R53.81 - OTHER MALAISE Status: Chronic Comment: PT for mobilization - Plan continue antibiotics, PT/OT, high school social studies teacher, out of bed/ambulate Stable overall -: continue Rocephin and Vancomycin -: WCT for local care -: Procrit weekly -: AM lab: CBC * Palliative care consult
[2017-09-30] MEDS ORDERED: PROVENTIL INHALER 6.7 G (200 INHALATIONS) INH PRN (20:25)
[2017-09-30 20:29] LABS: Vancomycin, Trough 41.2 ug/mL
[2017-09-30] MEDS ORDERED: Ferrous Gluconate 324 MG TAB PO SCH (20:45)
[2017-09-30] MEDS: Metoprolol Tartrate 100 MG TAB PO SCH (21:17)
[2017-09-30] MEDS: Hydroxychloroquine Sulfate 200 MG TAB PO SCH (21:17)
[2017-09-30] MEDS: Oxybutynin ER 5 MG TAB PO SCH (21:17)
[2017-09-30] MEDS: hydrALAZINE 25 MG TAB PO SCH (21:17)
[2017-10-01 05:37] LABS: Vancomycin, Random 33.3 ug/mL (See Comment)
[2017-10-01 06:38] LABS: Acanthocytes SLIGHT = 1-5 cells (100X) (None Seen); Anisocytosis MODERATE=16-30 cells (100X) (0-5/hpf); Band 8 % (5-11); Elliptocytes SLIGHT = 2-5 cells (100X) (0-1/hpf); Lymphocytes 11 % (21-51); MDiff Complete? YES; Mean Corpuscular Volume 99.9 fl (81.0-99.0); Mean Platelet Volume 11.2 fL (7.4-10.4); Monocytes 48 % (0-10); Neutrophil 33 % (42-75); PLT Morphology Comment Appears Adequate; Platelet Count 129 thou/uL (130-400); RBC Distribution Width 27.1 % (11.5-14.5); Red Blood Cell (RBC) Count 2.35 mill/uL (4.20-5.40)
[2017-10-01] MEDS: Oxybutynin ER 5 MG TAB PO SCH ×2 (09:01→20:44)
[2017-10-01] MEDS: Metoprolol Tartrate 100 MG TAB PO SCH ×2 (09:01→20:36)
[2017-10-01] MEDS: Saccharomyces boulardii 250 MG CAP PO SCH (09:01)
[2017-10-01] MEDS: Furosemide 40 MG TAB PO SCH (09:01)
[2017-10-01] MEDS: Hydroxychloroquine Sulfate 200 MG TAB PO SCH ×2 (09:02→20:36)
[2017-10-01] MEDS: Potassium Chloride 20 MEQ TAB PO SCH (09:02)
[2017-10-01] MEDS: predniSONE 5 MG TAB PO SCH (09:02)
[2017-10-01] MEDS: Multivitamin W/ Minerals 1 TAB PO SCH (09:02)
[2017-10-01] MEDS: hydrALAZINE 25 MG TAB PO SCH ×2 (09:03→20:36)
[2017-10-01] MEDS: Ferrous Gluconate 324 MG TAB PO SCH ×2 (09:03→17:39)
[2017-10-01] MEDS: Enoxaparin Sodium 30 MG/0.3 ML SYRINGE SC SCH (09:04)
[2017-10-01] MEDS: Vancomycin HCl 1 GM in Premix Bag 1 BAG IVPB SCH ×2 (09:05→20:41)
[2017-10-01] MEDS ORDERED: Piperacillin/Tazobactam 2.25 GM in Sodium Chloride 0.9% 100 ML IVPB SCH (17:00)
--- NOTE | 2017-10-01 19:55 | PDOC.PN ---
- Subjective Encounter Start Date: 10/01/17 Encounter Start Time: 14:20 Subjective: f/u for LLE cellulitis on Vanc and Rocephin receiving local wound care. -: States the leg is still sore but no fever. c/o intermittent SOB and -: non-productive cough. Worked with PT for bed exercises/ROM - Objective Resuscitation Status: Resuscitation Status FULL:Full Resuscitation MAR Reviewed: Yes Vital Signs & Weight: Vital Signs (12 hours) Temp Pulse Pulse Pulse Pulse Resp BP 10/01/17 17:29 97.8 F 83 20 10/01/17 17:11 97.9 F 83 20 10/01/17 13:14 98.3 F 78 18 10/01/17 09:37 81 93 10/01/17 09:03 85 154/61 H 10/01/17 08:00 97.8 F 85 16 BP BP BP BP Pulse Ox Pulse Ox Pulse Ox 10/01/17 17:29 157/58 H 10/01/17 17:11 167/71 H 10/01/17 13:14 134/62 92 L 10/01/17 09:37 177/73 H 154/61 H 94 L 94 L 10/01/17 09:03 10/01/17 08:00 154/61 H 91 L Weight Admit Weight 96 lb 9.6 oz Weight 98 lb 6.4 oz I&O: 09/30/17 10/01/17 10/02/17 06:59 06:59 06:59 Intake Total 500 Balance 500 Result Diagrams: 10/01/17 04:53 09/30/17 05:06 Additional Labs: Microbiology 09/28/17 12:58 Venous blood - Left Arm Blood Culture - Preliminary Specimen has been received and culture in progress. No Growth to date. 09/28/17 12:58 Venous blood - Left Arm Blood Culture - Preliminary NO GROWTH AT 48 HOURS 09/28/17 12:55 Venous blood - Left Arm Blood Culture - Preliminary Specimen has been received and culture in progress. No Growth to date. 09/28/17 12:55 Venous blood - Left Arm Blood Culture - Preliminary NO GROWTH AT 48 HOURS Laboratory Tests 03/22/17 03/22/17 03/22/17 11:25 11:25 16:44 WBC Hgb 10.6 L 10.6 L Plt Count 71 L 61 L Neutrophils % (Manual) Band Neuts % (Manual) Sodium Creatinine 1.84 H Vancomycin Trough 03/23/17 09/28/17 09/28/17 04:41 12:55 12:55 WBC 29.8 H Hgb 9.0 L 8.5 L Plt Count Neutrophils % (Manual) Band Neuts % (Manual) 15 H Sodium 132 L Creatinine 2.28 H Vancomycin Trough 09/29/17 09/29/17 09/30/17 05:01 05:01 05:06 WBC 40.1 H* 39.9 H Hgb 7.3 L 7.4 L Plt Count 167 159 Neutrophils % (Manual) 24 L 36 L Band Neuts % (Manual) 12 H 10 Sodium Creatinine 2.28 H Vancomycin Trough 09/30/17 20:01 WBC Hgb Plt Count Neutrophils % (Manual) Band Neuts % (Manual) Sodium Creatinine Vancomycin Trough 41.2 H* Phys Exam - Physical Examination Constitutional: NAD alert, responsive HEENT: PERRLA, oral pharynx no lesions Neck: no JVD, supple coarse sounds in R>L bases Cardiovascular: RRR Gastrointestinal: soft, non-tender, no distention, positive bowel sounds LLE with erythematous patch on mid-tibia and medial foot, decreased erythema of medial thigh, clearing on ankle Musculoskeletal: pulses present Neurological: normal sensation, moves all 4 limbs Psychiatric: A&O x 3 Skin: normal turgor, cap refill <2 seconds Dx/Plan (1) Cellulitis of left lower extremity Code(s): L03.116 - CELLULITIS OF LEFT LOWER LIMB Status: Acute Comment: LLE involvement, continue Rocephin, Vancomycin on hold due to elevated trough, add Zosyn 2.25mg IV q6h (2) Acute kidney failure Status: Acute Comment: Improved, avoid nephrotoxic meds and contrast media, serial monitoring (3) CKD (chronic kidney disease), stage IV Code(s): N18.4 - CHRONIC KIDNEY DISEASE, STAGE 4 (SEVERE) Status: Chronic (4) Myelodysplasia (myelodysplastic syndrome) Code(s): D46.9 - MYELODYSPLASTIC SYNDROME, UNSPECIFIED Status: Chronic Comment: Procrit per Hematology service, appears to be worsening, transfuse 1u PRBC's (5) Macrocytic anemia Code(s): D53.9 - NUTRITIONAL ANEMIA, UNSPECIFIED Status: Chronic Comment: Serial H/H monitoring, no evidence of acute blood loss (6) Physical deconditioning Code(s): R53.81 - OTHER MALAISE Status: Chronic Comment: PT for mobilization - Plan continue antibiotics, PT/OT, manager social services, respiratory therapy Stable overall -: Add Zosyn today -: Hold Vancomycin due to elevated trough -: Continue Rocephin -: Add Duonebs q6h prn * PT for mobilization * WCT for local care * AM lab: BMP, CBC
[2017-10-01] MEDS: cefTRIAXone\\ROCEPHIN 2 GM in Sodium Chloride 0.9% 100 ML IVPB SCH (20:29)
[2017-10-01] MEDS: Famotidine 20 MG TAB PO SCH (20:40)
[2017-10-02] MEDS: Piperacillin/Tazobactam 2.25 GM in Sodium Chloride 0.9% 100 ML IVPB SCH ×4 (00:05→23:06)
[2017-10-02 06:08] LABS: Acanthocytes SLIGHT = 1-5 cells (100X) (None Seen); Anisocytosis SLIGHT = 6-15 cells (100X) (0-5/hpf); Band 16 % (5-11); Elliptocytes SLIGHT = 2-5 cells (100X) (0-1/hpf); Eosinophils 1 % (0-10); Hemoglobin 8.5 g/dL (12.0-16.0); Hypochromia SLIGHT = 6-15 cells (100X) (0-5/hpf); Large Platelets MODERATE; Lymphocytes 14 % (21-51); MDiff Complete? YES; Mean Corpuscular HGB CONC 30.9 g/dL (32.0-36.0); Metamyelocyte 2 % (0-0); Monocytes 28 % (0-10); Myelocyte 6 % (0-0); Neutrophil 33 % (42-75); Nucleated RBC 3 % (0); PLT Morphology Comment Appears Adequate; Platelet Count 106 thou/uL (130-400); Polychromasia SLIGHT = 2-3 cells (100X) (0-2/hpf); RBC Distribution Width 24.6 % (11.5-14.5); Red Blood Cell (RBC) Count 2.83 mill/uL (4.20-5.40); White Blood Cell (WBC) Count 22.4 thou/uL (4.8-10.8)
[2017-10-02 06:23] LABS: Anion Gap 13 mmol/L (10-20); BUN (Urea Nitrogen) 30 mg/dL (9.8-20.1); Calc. Creatinine Clearance 15 mL/min (70-130); Calcium 8.3 mg/dL (7.8-10.44); Carbon Dioxide 22 mmol/L (23-31); Chloride 101 mmol/L (98-107); Estimated GFR-MDRD 25; Glucose 131 mg/dL (83-110); Potassium 3.9 mmol/L (3.5-5.1); Sodium 132 mmol/L (136-145)
[2017-10-02] MEDS: predniSONE 5 MG TAB PO SCH (08:57)
[2017-10-02] MEDS: Furosemide 40 MG TAB PO SCH (08:57)
[2017-10-02] MEDS: Metoprolol Tartrate 100 MG TAB PO SCH ×2 (08:57→20:32)
[2017-10-02] MEDS: Multivitamin W/ Minerals 1 TAB PO SCH (08:57)
[2017-10-02] MEDS: hydrALAZINE 25 MG TAB PO SCH ×2 (08:57→20:32)
[2017-10-02] MEDS: Hydroxychloroquine Sulfate 200 MG TAB PO SCH ×2 (08:57→20:31)
[2017-10-02] MEDS: Potassium Chloride 20 MEQ TAB PO SCH (08:57)
[2017-10-02] MEDS: Ferrous Gluconate 324 MG TAB PO SCH ×2 (08:58→16:42)
[2017-10-02] MEDS: Saccharomyces boulardii 250 MG CAP PO SCH (08:58)
[2017-10-02] MEDS: Enoxaparin Sodium 30 MG/0.3 ML SYRINGE SC SCH (08:58)
[2017-10-02] MEDS: Vancomycin HCl 1 GM in Premix Bag 1 BAG IVPB SCH ×2 (08:59→20:38)
[2017-10-02] MEDS: Oxybutynin ER 5 MG TAB PO SCH ×2 (10:22→20:36)
--- NOTE | 2017-10-02 14:07 | PDOC.PN ---
- Subjective Encounter Start Date: 10/02/17 Encounter Start Time: 12:40 Subjective: f/u for LLE cellulitis on Zosyn and Rocephin. Some residual erythema but -: edema regressing. No fever. c/o dry, persistent cough improved with Duonebs -: O2 supplementation. - Objective Resuscitation Status: Resuscitation Status FULL:Full Resuscitation MAR Reviewed: Yes Vital Signs & Weight: Vital Signs (12 hours) Temp Pulse Resp BP BP Pulse Ox 10/02/17 13:39 81 16 95 10/02/17 08:57 86 167/56 H 10/02/17 08:00 97.9 F 86 22 H 167/56 H 95 10/02/17 06:33 78 18 98 10/02/17 04:00 88 168/65 H Weight Admit Weight 96 lb 9.6 oz Weight 98 lb 6.4 oz I&O: 10/01/17 10/02/17 10/03/17 06:59 06:59 06:59 Intake Total 850 Balance 850 Result Diagrams: 10/02/17 05:02 10/02/17 05:02 Phys Exam - Physical Examination Constitutional: NAD HEENT: PERRLA, oral pharynx no lesions Neck: no JVD, supple Respiratory: no wheezing Cardiovascular: irregular Gastrointestinal: soft, non-tender, no distention, positive bowel sounds LLE with decreased edema and persistent erythema of tibia and medial foot Musculoskeletal: pulses present Neurological: normal sensation, moves all 4 limbs Psychiatric: A&O x 3 Skin: normal turgor, cap refill <2 seconds Dx/Plan (1) Cellulitis of left lower extremity Code(s): L03.116 - CELLULITIS OF LEFT LOWER LIMB Status: Acute Comment: LLE involvement, continue Rocephin, Vancomycin on hold due to elevated trough, add Zosyn 2.25mg IV q6h (2) Acute kidney failure Status: Acute Comment: Improved, avoid nephrotoxic meds and contrast media, serial monitoring (3) CKD (chronic kidney disease), stage IV Code(s): N18.4 - CHRONIC KIDNEY DISEASE, STAGE 4 (SEVERE) Status: Chronic (4) Myelodysplasia (myelodysplastic syndrome) Code(s): D46.9 - MYELODYSPLASTIC SYNDROME, UNSPECIFIED Status: Chronic Comment: Procrit per Hematology service, appears to be worsening, s/p 1u PRBC's 10/01/17 (5) Macrocytic anemia Code(s): D53.9 - NUTRITIONAL ANEMIA, UNSPECIFIED Status: Chronic Comment: Serial H/H monitoring, no evidence of acute blood loss (6) Physical deconditioning Code(s): R53.81 - OTHER MALAISE Status: Chronic Comment: PT for mobilization - Plan continue antibiotics, PT/OT, social welfare research worker, speech therapy, respiratory therapy Stable currently -: Check PCXR to r/o early PNA -: Add Tessalon and Robitussin for cough -: Continue Rocephin and Zosyn -: AM lab: CBC, BMP * Code Status: DNR * Plan for return to [facility]
[2017-10-02] MEDS: Benzonatate 100 MG CAP PO PRN (14:41)
--- NOTE | 2017-10-02 15:04 | RAD ---
PORTABLE CHEST 1 VIEW: DATE: 10/02/17. TIME: 2:06 p.m. HISTORY: Dyspnea, cough, hypoxia. FINDINGS/IMPRESSION: Comparison is made with the exam of 07/07/17. The heart size is enlarged. The aorta is tortuous. There is pulmonary vascular congestion with bila teral pleural effusions with adjacent infiltrate/atelectatic changes. No pneumothoraces are seen. T here is a 1.5 cm nodular density in the left mid lung. Followup exam is recommended in 4-6 weeks. CODE T POS: [facility]
[2017-10-02] MEDS: Guaifenesin DM 100-10/5 ML UDCUP PO PRN (16:43)
[2017-10-02] MEDS: Famotidine 20 MG TAB PO SCH (20:32)
[2017-10-02] MEDS: Acetaminophen 500 MG TAB PO PRN (20:36)
[2017-10-02] MEDS: cefTRIAXone\\ROCEPHIN 2 GM in Sodium Chloride 0.9% 100 ML IVPB SCH (20:36)
[2017-10-03 06:04] LABS: Anion Gap 13 mmol/L (10-20); BUN (Urea Nitrogen) 27 mg/dL (9.8-20.1); Calc. Creatinine Clearance 17 mL/min (70-130); Calcium 8.4 mg/dL (7.8-10.44); Carbon Dioxide 21 mmol/L (23-31); Chloride 102 mmol/L (98-107); Estimated GFR-MDRD 29; Glucose 121 mg/dL (83-110); Potassium 4.2 mmol/L (3.5-5.1); Sodium 132 mmol/L (136-145)
[2017-10-03 06:41] LABS: Acanthocytes SLIGHT = 1-5 cells (100X) (None Seen); Anisocytosis MODERATE=16-30 cells (100X) (0-5/hpf); Band 13 % (5-11); Elliptocytes SLIGHT = 2-5 cells (100X) (0-1/hpf); Hemoglobin 8.2 g/dL (12.0-16.0); Lymphocytes 23 % (21-51); MDiff Complete? YES; Mean Corpuscular Hemoglobin 30.1 pg (27.0-31.0); Mean Corpuscular Volume 96.9 fl (81.0-99.0); Mean Platelet Volume 8.5 fL (7.4-10.4); Monocytes 28 % (0-10); Neutrophil 36 % (42-75); Nucleated RBC 1 % (0); PLT Morphology Comment Appears Decreased; Platelet Count 92 thou/uL (130-400); RBC Distribution Width 25.1 % (11.5-14.5); Red Blood Cell (RBC) Count 2.72 mill/uL (4.20-5.40); White Blood Cell (WBC) Count 23.1 thou/uL (4.8-10.8)
[2017-10-03] MEDS: Ferrous Gluconate 324 MG TAB PO SCH ×2 (08:34→16:08)
[2017-10-03] MEDS: Piperacillin/Tazobactam 2.25 GM in Sodium Chloride 0.9% 100 ML IVPB SCH ×3 (08:34→23:41)
[2017-10-03] MEDS: Saccharomyces boulardii 250 MG CAP PO SCH (08:34)
[2017-10-03] MEDS: Multivitamin W/ Minerals 1 TAB PO SCH (08:35)
[2017-10-03] MEDS: Hydroxychloroquine Sulfate 200 MG TAB PO SCH ×2 (08:35→20:36)
[2017-10-03] MEDS: Potassium Chloride 20 MEQ TAB PO SCH (08:35)
[2017-10-03] MEDS: Enoxaparin Sodium 30 MG/0.3 ML SYRINGE SC SCH (08:35)
[2017-10-03] MEDS: Furosemide 40 MG TAB PO SCH (08:35)
[2017-10-03] MEDS: hydrALAZINE 25 MG TAB PO SCH ×2 (08:35→20:36)
[2017-10-03] MEDS: predniSONE 5 MG TAB PO SCH (08:35)
[2017-10-03] MEDS: Vancomycin HCl 1 GM in Premix Bag 1 BAG IVPB SCH (08:36)
[2017-10-03] MEDS: Metoprolol Tartrate 100 MG TAB PO SCH ×2 (08:36→20:36)
[2017-10-03] MEDS ORDERED: Vancomycin HCl 1 GM in Premix Bag 1 BAG IVPB SCH (09:45)
[2017-10-03] MEDS: Oxybutynin ER 5 MG TAB PO SCH ×2 (10:40→20:37)
[2017-10-03 11:17] LABS: Vancomycin, Random 25.4 ug/mL (See Comment)
--- NOTE | 2017-10-03 12:09 | PDOC.PN ---
- Subjective Encounter Start Date: 10/03/17 Encounter Start Time: 09:00 Pt seen for followup re: cellulitis. reports feeling better. No chest pain, shortness of breath, fevers or chills. - Objective Resuscitation Status: Resuscitation Status DNR:Do Not Resuscitate MAR Reviewed: Yes Vital Signs & Weight: Vital Signs (12 hours) Temp Pulse Resp BP BP Pulse Ox 10/03/17 08:35 81 154/63 H 10/03/17 08:00 97.6 F 81 20 154/63 H 97 10/03/17 07:20 78 16 96 10/03/17 03:35 97 Weight Admit Weight 96 lb 9.6 oz Weight 98 lb 6.4 oz I&O: 10/02/17 10/03/17 10/04/17 06:59 06:59 06:59 Intake Total 850 680 Balance 850 680 Result Diagrams: 10/03/17 05:24 10/03/17 05:24 Phys Exam - Physical Examination Constitutional: NAD HEENT: moist MMs Neck: supple Respiratory: clear to auscultation bilateral Cardiovascular: RRR Gastrointestinal: soft Neurological: moves all 4 limbs Psychiatric: normal affect Deviation from normal: L leg rash Dx/Plan (1) Cellulitis of left lower extremity Code(s): L03.116 - CELLULITIS OF LEFT LOWER LIMB Status: Acute (2) CKD (chronic kidney disease), stage IV Code(s): N18.4 - CHRONIC KIDNEY DISEASE, STAGE 4 (SEVERE) Status: Chronic (3) Myelodysplasia (myelodysplastic syndrome) Code(s): D46.9 - MYELODYSPLASTIC SYNDROME, UNSPECIFIED Status: Chronic (4) Physical deconditioning Code(s): R53.81 - OTHER MALAISE Status: Chronic Comment: PT for mobilization (5) HTN (hypertension) Code(s): I10 - ESSENTIAL (PRIMARY) HYPERTENSION Status: Chronic Qualifiers: Hypertension type: essential hypertension Qualified Code(s): I10 - Essential (primary) hypertension - Plan continue antibiotics, PT/OT, out of bed/ambulate * . Continue IV antibiotics as below. pharmacy to dose vancomycin. Monitor vital signs, titrate antihypertensives as needed. Procrit injections per nephrology service. Review of Systems - Review of Systems Respiratory: negative: Cough, Dry, Shortness of Breath, Hemoptysis, SOB with Excertion, Pleuritic Pain, Sputum, Wheezing Cardiovascular: negative: chest pain, palpitations, orthopnea, paroxysmal nocturnal dyspnea, edema, light headedness - Medications/Allergies Allergies/Adverse Reactions: Allergies Allergy/AdvReac Type Severity Reaction Status Date / Time No Known Allergies Allergy Verified 07/09/17 13:42 Medications: Current Medications Acetaminophen (Tylenol) 1,000 mg PO Q6H PRN PRN Reason: Headache/Fever or Mild Pain Last Admin: 10/02/17 20:36 Dose: 1,000 mg Albuterol Sulfate (Proventil Hfa) 2 puff INH Q4H PRN PRN Reason: Dyspnea Albuterol/Ipratropium (Duoneb) 3 ml NEB [id number] [facility] Last Admin: 10/03/17 07:20 Dose: 3 ml Benzonatate (Tessalon) 200 mg PO Q4H PRN PRN Reason: Cough Last Admin: 10/02/17 14:41 Dose: 200 mg Clonidine (Catapres) 0.1 mg PO Q4H PRN PRN Reason: Systolic BP > 180 Enoxaparin Sodium (Lovenox) 30 mg SC 0900 [facility] Last Admin: 10/03/17 08:35 Dose: Not Given Famotidine (Pepcid) 20 mg PO Q24HR [facility] Last Admin: 10/02/17 20:32 Dose: 20 mg Ferrous Gluconate (Fergon) 324 mg PO BID-WM [facility] Last Admin: 10/03/17 08:34 Dose: 324 mg Furosemide (Lasix) 40 mg PO DAILY-AC [facility] Last Admin: 10/03/17 08:35 Dose: 40 mg Guaifenesin/Dextromethorphan (Robitussin Dm) 10 ml PO Q6H PRN PRN Reason: Cough Last Admin: 10/02/17 16:43 Dose: 10 ml Hydralazine HCl (Apresoline) 10 mg SLOW IVP Q4H PRN PRN Reason: Systolic BP > 180 Hydralazine HCl (Apresoline) 25 mg PO BID [facility] Last Admin: 10/03/17 08:35 Dose: 25 mg Hydroxychloroquine Sulfate (Plaquenil) 200 mg PO BID [facility] Last Admin: 10/03/17 08:35 Dose: 200 mg Ceftriaxone Sodium 2 gm/ (Sodium Chloride) 100 mls @ 200 mls/hr IVPB Q24HR [facility] Last Admin: 10/02/17 20:36 Dose: 100 mls Piperacillin Sod/Tazobactam (Sod 2.25 gm/ Sodium Chloride) 100 mls @ 200 mls/ hr IVPB 0700,1500,2300 [facility] Last Admin: 10/03/17 08:34 Dose: 100 mls Vancomycin HCl 1 gm/ Device 200 mls @ 200 mls/hr IVPB .PENDING LEVEL [facility] Iron/Minerals/Multivitamins (Theragran M) 1 tab PO DAILY [facility] Last Admin: 10/03/17 08:35 Dose: 1 tab Metoprolol Tartrate (Lopressor) 100 mg PO BID [facility] Last Admin: 10/03/17 08:36 Dose: 100 mg Miscellaneous Medication (Biotene Oralbalance Gel) 0 gm TOP BID PRN PRN Reason: Dry Mouth Miscellaneous Medication (Pharmacy To Dose) 1 each IVPB PRN PRN PRN Reason: Pharmacy to dose Ondansetron HCl (Zofran Odt) 4 mg PO Q6H PRN PRN Reason: Nausea/Vomiting Ondansetron HCl (Zofran) 4 mg IVP Q6H PRN PRN Reason: Nausea/Vomiting Oxybutynin Chloride (Ditropan Xl) 10 mg PO BID [facility] Last Admin: 10/03/17 10:40 Dose: 10 mg Potassium Chloride (K-Dur) 20 meq PO QAM-[facility] Last Admin: 10/03/17 08:35 Dose: 20 meq Prednisone (Prednisone) 5 mg PO QAM-WM [facility] Last Admin: 10/03/17 08:35 Dose: 5 mg Saccharomyces Boulardii (Florastor) 250 mg PO DAILY [facility] Last Admin: 10/03/17 08:34 Dose: 250 mg Sodium Chloride (Flush - Normal Saline) 10 ml IVF Q12HR [facility] Last Admin: 10/03/17 08:36 Dose: Not Given Sodium Chloride (Flush - Normal Saline) 10 ml IVF PRN PRN PRN Reason: Saline Flush
[2017-10-03] MEDS: Benzonatate 100 MG CAP PO PRN (16:08)
[2017-10-03] MEDS: Guaifenesin DM 100-10/5 ML UDCUP PO PRN (17:20)
[2017-10-03] MEDS: cefTRIAXone\\ROCEPHIN 2 GM in Sodium Chloride 0.9% 100 ML IVPB SCH (20:35)
[2017-10-03] MEDS: Famotidine 20 MG TAB PO SCH (20:36)
[2017-10-04] MEDS: Guaifenesin DM 100-10/5 ML UDCUP PO PRN ×2 (01:54→11:25)
[2017-10-04 05:49] LABS: Vancomycin, Random 21.7 ug/mL (See Comment)
[2017-10-04] MEDS: Metoprolol Tartrate 100 MG TAB PO SCH ×2 (08:15→21:42)
[2017-10-04] MEDS: Saccharomyces boulardii 250 MG CAP PO SCH (08:15)
[2017-10-04] MEDS: predniSONE 5 MG TAB PO SCH (08:15)
[2017-10-04] MEDS: Multivitamin W/ Minerals 1 TAB PO SCH (08:15)
[2017-10-04] MEDS: hydrALAZINE 25 MG TAB PO SCH ×2 (08:15→21:42)
[2017-10-04] MEDS: Piperacillin/Tazobactam 2.25 GM in Sodium Chloride 0.9% 100 ML IVPB SCH ×3 (08:15→23:17)
[2017-10-04] MEDS: Ferrous Gluconate 324 MG TAB PO SCH ×2 (08:15→17:10)
[2017-10-04] MEDS: Enoxaparin Sodium 30 MG/0.3 ML SYRINGE SC SCH (08:16)
[2017-10-04] MEDS: Oxybutynin ER 5 MG TAB PO SCH ×2 (08:16→21:43)
[2017-10-04] MEDS: Hydroxychloroquine Sulfate 200 MG TAB PO SCH ×2 (08:16→21:42)
[2017-10-04] MEDS: Furosemide 40 MG TAB PO SCH (08:16)
[2017-10-04] MEDS: Potassium Chloride 20 MEQ TAB PO SCH (08:16)
[2017-10-04] MEDS: Acetaminophen 500 MG TAB PO PRN (11:25)
--- NOTE | 2017-10-04 13:42 | PDOC.PN ---
- Subjective Encounter Start Date: 10/04/17 Encounter Start Time: 08:40 Pt seen for followup re: cellulitis. No complaints today. - Objective Resuscitation Status: Resuscitation Status DNR:Do Not Resuscitate Vital Signs & Weight: Vital Signs (12 hours) Temp Pulse Resp BP BP Pulse Ox 10/04/17 13:14 91 20 93 L 10/04/17 12:00 97.6 F 85 20 94 L 10/04/17 08:15 76 177/69 H 10/04/17 08:00 98 F 76 18 95 10/04/17 07:52 98.0 F 76 18 177/69 H 95 10/04/17 07:42 76 16 95 10/04/17 03:46 95 Weight Admit Weight 96 lb 9.6 oz Weight 98 lb 6.4 oz I&O: 10/03/17 10/04/17 10/05/17 06:59 06:59 06:59 Intake Total 680 1420 Balance 680 1420 Result Diagrams: 10/03/17 05:24 10/03/17 05:24 Phys Exam - Physical Examination Constitutional: NAD HEENT: moist MMs Neck: supple Respiratory: clear to auscultation bilateral Cardiovascular: RRR Gastrointestinal: soft Neurological: moves all 4 limbs Psychiatric: normal affect Deviation from normal: LLE cellulitis Dx/Plan (1) Cellulitis of left lower extremity Code(s): L03.116 - CELLULITIS OF LEFT LOWER LIMB Status: Acute (2) CKD (chronic kidney disease), stage IV Code(s): N18.4 - CHRONIC KIDNEY DISEASE, STAGE 4 (SEVERE) Status: Chronic (3) Myelodysplasia (myelodysplastic syndrome) Code(s): D46.9 - MYELODYSPLASTIC SYNDROME, UNSPECIFIED Status: Chronic (4) Physical deconditioning Code(s): R53.81 - OTHER MALAISE Status: Chronic Comment: PT for mobilization (5) HTN (hypertension) Code(s): I10 - ESSENTIAL (PRIMARY) HYPERTENSION Status: Chronic Qualifiers: Hypertension type: essential hypertension Qualified Code(s): I10 - Essential (primary) hypertension - Plan out of bed/ambulate * . Continue intravenous antibiotics. cellulitis slowly improving. Review of Systems - Review of Systems Constitutional: negative: fever, chills, sweats, weakness, malaise Cardiovascular: negative: chest pain, palpitations, orthopnea, paroxysmal nocturnal dyspnea, edema, light headedness - Medications/Allergies Allergies/Adverse Reactions: Allergies Allergy/AdvReac Type Severity Reaction Status Date / Time No Known Allergies Allergy Verified 07/09/17 13:42 Medications: Current Medications Acetaminophen (Tylenol) 1,000 mg PO Q6H PRN PRN Reason: Headache/Fever or Mild Pain Last Admin: 10/04/17 11:25 Dose: 1,000 mg Albuterol Sulfate (Proventil Hfa) 2 puff INH Q4H PRN PRN Reason: Dyspnea Albuterol/Ipratropium (Duoneb) 3 ml NEB [id number] [facility] Last Admin: 10/04/17 13:14 Dose: 3 ml Benzonatate (Tessalon) 200 mg PO Q4H PRN PRN Reason: Cough Last Admin: 10/03/17 16:08 Dose: 200 mg Clonidine (Catapres) 0.1 mg PO Q4H PRN PRN Reason: Systolic BP > 180 Enoxaparin Sodium (Lovenox) 30 mg SC 0900 [facility] Last Admin: 10/04/17 08:16 Dose: Not Given Famotidine (Pepcid) 20 mg PO Q24HR [facility] Last Admin: 10/03/17 20:36 Dose: 20 mg Ferrous Gluconate (Fergon) 324 mg PO BID-WM [facility] Last Admin: 10/04/17 08:15 Dose: 324 mg Furosemide (Lasix) 40 mg PO DAILY-AC [facility] Last Admin: 10/04/17 08:16 Dose: 40 mg Guaifenesin/Dextromethorphan (Robitussin Dm) 10 ml PO Q6H PRN PRN Reason: Cough Last Admin: 10/04/17 11:25 Dose: 10 ml Hydralazine HCl (Apresoline) 10 mg SLOW IVP Q4H PRN PRN Reason: Systolic BP > 180 Hydralazine HCl (Apresoline) 25 mg PO BID [facility] Last Admin: 10/04/17 08:15 Dose: 25 mg Hydroxychloroquine Sulfate (Plaquenil) 200 mg PO BID [facility] Last Admin: 10/04/17 08:16 Dose: 200 mg Ceftriaxone Sodium 2 gm/ (Sodium Chloride) 100 mls @ 200 mls/hr IVPB Q24HR [facility] Last Admin: 10/03/17 20:35 Dose: 100 mls Piperacillin Sod/Tazobactam (Sod 2.25 gm/ Sodium Chloride) 100 mls @ 200 mls/ hr IVPB 0700,1500,2300 [facility] Last Admin: 10/04/17 08:15 Dose: 100 mls Vancomycin HCl 1 gm/ Device 200 mls @ 200 mls/hr IVPB .PENDING LEVEL [facility] Iron/Minerals/Multivitamins (Theragran M) 1 tab PO DAILY [facility] Last Admin: 10/04/17 08:15 Dose: 1 tab Metoprolol Tartrate (Lopressor) 100 mg PO BID [facility] Last Admin: 10/04/17 08:15 Dose: 100 mg Miscellaneous Medication (Biotene Oralbalance Gel) 0 gm TOP BID PRN PRN Reason: Dry Mouth Miscellaneous Medication (Pharmacy To Dose) 1 each IVPB PRN PRN PRN Reason: Pharmacy to dose Ondansetron HCl (Zofran Odt) 4 mg PO Q6H PRN PRN Reason: Nausea/Vomiting Ondansetron HCl (Zofran) 4 mg IVP Q6H PRN PRN Reason: Nausea/Vomiting Oxybutynin Chloride (Ditropan Xl) 10 mg PO BID [facility] Last Admin: 10/04/17 08:16 Dose: 10 mg Potassium Chloride (K-Dur) 20 meq PO QAM-[facility] Last Admin: 10/04/17 08:16 Dose: 20 meq Prednisone (Prednisone) 5 mg PO QAM-WM [facility] Last Admin: 10/04/17 08:15 Dose: 5 mg Saccharomyces Boulardii (Florastor) 250 mg PO DAILY [facility] Last Admin: 10/04/17 08:15 Dose: 250 mg Sodium Chloride (Flush - Normal Saline) 10 ml IVF Q12HR [facility] Last Admin: 10/04/17 08:17 Dose: 10 ml Sodium Chloride (Flush - Normal Saline) 10 ml IVF PRN PRN PRN Reason: Saline Flush
[2017-10-04] MEDS: Benzonatate 100 MG CAP PO PRN (17:10)
[2017-10-04] MEDS: Famotidine 20 MG TAB PO SCH (21:44)
[2017-10-04] MEDS: cefTRIAXone\\ROCEPHIN 2 GM in Sodium Chloride 0.9% 100 ML IVPB SCH (22:42)
[2017-10-05] MEDS: Piperacillin/Tazobactam 2.25 GM in Sodium Chloride 0.9% 100 ML IVPB SCH ×2 (06:23→16:18)
[2017-10-05 06:32] LABS: Vancomycin, Random 15.9 ug/mL (See Comment)
[2017-10-05] MEDS ORDERED: Vancomycin HCl 500 MG in Sodium Chloride 0.9% 100 ML IVPB SCH (10:00)
[2017-10-05] MEDS: Metoprolol Tartrate 100 MG TAB PO SCH ×2 (10:28→20:52)
[2017-10-05] MEDS: hydrALAZINE 25 MG TAB PO SCH ×2 (10:29→20:52)
[2017-10-05] MEDS: Potassium Chloride 20 MEQ TAB PO SCH (10:31)
[2017-10-05] MEDS: predniSONE 5 MG TAB PO SCH ×2 (10:32→10:33)
[2017-10-05] MEDS: Multivitamin W/ Minerals 1 TAB PO SCH (10:33)
[2017-10-05] MEDS: Hydroxychloroquine Sulfate 200 MG TAB PO SCH ×2 (10:33→20:52)
[2017-10-05] MEDS: Oxybutynin ER 5 MG TAB PO SCH ×2 (10:35→20:51)
[2017-10-05] MEDS: Saccharomyces boulardii 250 MG CAP PO SCH (10:35)
[2017-10-05] MEDS: Furosemide 40 MG TAB PO SCH (10:35)
[2017-10-05] MEDS: Ferrous Gluconate 324 MG TAB PO SCH ×2 (10:37→16:18)
[2017-10-05] MEDS: Enoxaparin Sodium 30 MG/0.3 ML SYRINGE SC SCH (10:37)
--- NOTE | 2017-10-05 14:23 | PDOC.PN ---
- Subjective Encounter Start Date: 10/05/17 Encounter Start Time: 09:40 Pt seen for followup re: cellulitis. Denies fevers or chills. - Objective Resuscitation Status: Resuscitation Status DNR:Do Not Resuscitate Vital Signs & Weight: Vital Signs (12 hours) Temp Pulse Resp BP BP Pulse Ox 10/05/17 13:21 71 16 95 10/05/17 10:29 90 151/57 H 10/05/17 08:30 98.8 F 90 18 143/85 H 92 L 10/05/17 08:00 98.8 F 90 18 165/63 H 92 L 10/05/17 06:22 65 16 95 Weight Admit Weight 96 lb 9.6 oz Weight 98 lb 6.4 oz I&O: 10/04/17 10/05/17 10/06/17 06:59 06:59 06:59 Intake Total 1420 660 Balance 1420 660 Result Diagrams: 10/03/17 05:24 10/03/17 05:24 Phys Exam - Physical Examination Constitutional: NAD HEENT: moist MMs Neck: supple Respiratory: clear to auscultation bilateral Cardiovascular: RRR Gastrointestinal: soft Neurological: moves all 4 limbs Psychiatric: normal affect Deviation from normal: L leg cellulitis Dx/Plan (1) Cellulitis of left lower extremity Code(s): L03.116 - CELLULITIS OF LEFT LOWER LIMB Status: Acute (2) CKD (chronic kidney disease), stage IV Code(s): N18.4 - CHRONIC KIDNEY DISEASE, STAGE 4 (SEVERE) Status: Chronic (3) Myelodysplasia (myelodysplastic syndrome) Code(s): D46.9 - MYELODYSPLASTIC SYNDROME, UNSPECIFIED Status: Chronic (4) Physical deconditioning Code(s): R53.81 - OTHER MALAISE Status: Chronic Comment: PT for mobilization (5) HTN (hypertension) Code(s): I10 - ESSENTIAL (PRIMARY) HYPERTENSION Status: Chronic Qualifiers: Hypertension type: essential hypertension Qualified Code(s): I10 - Essential (primary) hypertension - Plan continue antibiotics, PT/OT, out of bed/ambulate * . Final blood cultures are negative. Continue IV antibiotics as below. Pt slow to respond, may need extended duration of IV antibiotics. Will reassess re; need for PICC line. Review of Systems - Review of Systems Constitutional: negative: fever, chills, sweats, weakness, malaise Cardiovascular: negative: chest pain, palpitations, orthopnea, paroxysmal nocturnal dyspnea, edema, light headedness Skin: Rash - Medications/Allergies Allergies/Adverse Reactions: Allergies Allergy/AdvReac Type Severity Reaction Status Date / Time No Known Allergies Allergy Verified 07/09/17 13:42 Medications: Current Medications Acetaminophen (Tylenol) 1,000 mg PO Q6H PRN PRN Reason: Headache/Fever or Mild Pain Last Admin: 10/04/17 11:25 Dose: 1,000 mg Albuterol Sulfate (Proventil Hfa) 2 puff INH Q4H PRN PRN Reason: Dyspnea Last Admin: 10/05/17 07:44 Dose: 2 puff Albuterol/Ipratropium (Duoneb) 3 ml NEB [id number] [facility] Last Admin: 10/05/17 13:21 Dose: 3 ml Benzonatate (Tessalon) 200 mg PO Q4H PRN PRN Reason: Cough Last Admin: 10/04/17 17:10 Dose: 200 mg Clonidine (Catapres) 0.1 mg PO Q4H PRN PRN Reason: Systolic BP > 180 Last Admin: 10/04/17 15:41 Dose: 0.1 mg Enoxaparin Sodium (Lovenox) 30 mg SC 0900 [facility] Last Admin: 10/05/17 10:37 Dose: Not Given Famotidine (Pepcid) 20 mg PO Q24HR [facility] Last Admin: 10/04/17 21:44 Dose: 20 mg Ferrous Gluconate (Fergon) 324 mg PO BID-WM [facility] Last Admin: 10/05/17 10:37 Dose: 324 mg Furosemide (Lasix) 40 mg PO DAILY-AC [facility] Last Admin: 10/05/17 10:35 Dose: 40 mg Guaifenesin/Dextromethorphan (Robitussin Dm) 10 ml PO Q6H PRN PRN Reason: Cough Last Admin: 10/04/17 11:25 Dose: 10 ml Hydralazine HCl (Apresoline) 10 mg SLOW IVP Q4H PRN PRN Reason: Systolic BP > 180 Hydralazine HCl (Apresoline) 25 mg PO BID [facility] Last Admin: 10/05/17 10:29 Dose: 25 mg Hydroxychloroquine Sulfate (Plaquenil) 200 mg PO BID [facility] Last Admin: 10/05/17 10:33 Dose: 200 mg Ceftriaxone Sodium 2 gm/ (Sodium Chloride) 100 mls @ 200 mls/hr IVPB Q24HR [facility] Last Admin: 10/04/17 22:42 Dose: 100 mls Piperacillin Sod/Tazobactam (Sod 2.25 gm/ Sodium Chloride) 100 mls @ 200 mls/ hr IVPB 0700,1500,2300 [facility] Last Admin: 10/05/17 06:23 Dose: 100 mls Vancomycin HCl 500 mg/ Sodium (Chloride) 100 mls @ 100 mls/hr IVPB Q2D@1000 [facility] Last Admin: 10/05/17 10:38 Dose: 100 mls Iron/Minerals/Multivitamins (Theragran M) 1 tab PO DAILY [facility] Last Admin: 10/05/17 10:33 Dose: 1 tab Metoprolol Tartrate (Lopressor) 100 mg PO BID [facility] Last Admin: 10/05/17 10:28 Dose: 100 mg Miscellaneous Medication (Biotene Oralbalance Gel) 0 gm TOP BID PRN PRN Reason: Dry Mouth Miscellaneous Medication (Pharmacy To Dose) 1 each IVPB PRN PRN PRN Reason: Pharmacy to dose Ondansetron HCl (Zofran Odt) 4 mg PO Q6H PRN PRN Reason: Nausea/Vomiting Ondansetron HCl (Zofran) 4 mg IVP Q6H PRN PRN Reason: Nausea/Vomiting Oxybutynin Chloride (Ditropan Xl) 10 mg PO BID [facility] Last Admin: 10/05/17 10:35 Dose: 10 mg Potassium Chloride (K-Dur) 20 meq PO QAM-WM [facility] Last Admin: 10/05/17 10:31 Dose: 20 meq Prednisone (Prednisone) 5 mg PO QAM-WM [facility] Last Admin: 10/05/17 10:33 Dose: 5 mg Saccharomyces Boulardii (Florastor) 250 mg PO DAILY [facility] Last Admin: 10/05/17 10:35 Dose: 250 mg Sodium Chloride (Flush - Normal Saline) 10 ml IVF Q12HR [facility] Last Admin: 10/05/17 10:38 Dose: 10 ml Sodium Chloride (Flush - Normal Saline) 10 ml IVF PRN PRN PRN Reason: Saline Flush
[2017-10-05] MEDS: cefTRIAXone\\ROCEPHIN 2 GM in Sodium Chloride 0.9% 100 ML IVPB SCH (20:40)
[2017-10-05] MEDS: Famotidine 20 MG TAB PO SCH (20:51)
[2017-10-06] MEDS: Piperacillin/Tazobactam 2.25 GM in Sodium Chloride 0.9% 100 ML IVPB SCH ×2 (00:11→06:14)
[2017-10-06] MEDS: Guaifenesin DM 100-10/5 ML UDCUP PO PRN ×2 (00:33→09:23)
[2017-10-06 08:48] VITALS: TEMP 98.7
[2017-10-06] MEDS: Oxybutynin ER 5 MG TAB PO SCH (09:14)
[2017-10-06] MEDS: Saccharomyces boulardii 250 MG CAP PO SCH (09:16)
[2017-10-06] MEDS: Metoprolol Tartrate 100 MG TAB PO SCH (09:17)
[2017-10-06] MEDS: Hydroxychloroquine Sulfate 200 MG TAB PO SCH (09:18)
[2017-10-06] MEDS: Potassium Chloride 20 MEQ TAB PO SCH (09:19)
[2017-10-06] MEDS: Furosemide 40 MG TAB PO SCH (09:20)
[2017-10-06] MEDS: hydrALAZINE 25 MG TAB PO SCH (09:21)
[2017-10-06] MEDS: Enoxaparin Sodium 30 MG/0.3 ML SYRINGE SC SCH (09:22)
[2017-10-06] MEDS: Multivitamin W/ Minerals 1 TAB PO SCH (09:22)
[2017-10-06 09:23] VITALS: BP 166/69
[2017-10-06] MEDS: Ferrous Gluconate 324 MG TAB PO SCH (09:23)
[2017-10-06] MEDS ORDERED: Doxycycline 100 MG CAP PO SCH ×2 (09:45→21:00)
--- NOTE | 2017-10-06 11:48 | DIS ---
DATE OF ADMISSION: 09/28/2017 DATE OF DISCHARGE: 10/06/2017 PRIMARY CARE PHYSICIAN: Mame Jo M.D. DISCHARGE DIAGNOSES: 1. Cellulitis of the left lower extremity. 2. Moderate protein-calorie malnutrition. CONDITION OF PATIENT AT THE TIME OF DISCHARGE: Stable. I assessed Ms. Alexander on the day of dischar . She denies any chest pain or shortness of breath. No fevers. Vital signs are stable. S1 and S 2 are heard, regular. Lungs are clear to auscultation bilaterally. Left lower extremity cellulitis has significantly improved. DISCHARGE MEDICATIONS: In addition to her home medications as dictated on the history and physical n ote from 09/28/2017, she is being discharged on doxycycline 100 mg 2 times a day for 1 week, to be re assessed at that time. HOSPITAL COURSE: Ms. Alexander is a pleasant 87-year-old lady who was admitted to [facility] on 10/06/2017 for left lower extremity cellulitis. She was treated with intravenous an tibiotics, with improvement in her cellulitis. She is being stepped down to doxycycline on the day o f discharge. Final blood cultures were negative. She was also deconditioned during this hospitalization. She is being discharged to [facility] for further management. She was also seen by Hematology Service during this hospitalization for myelodysplastic syndrome. Sh shilpi received packed RBC transfusion for anemia. Many thanks for allowing me to participate in your patient's care. Please feel free to contact me wi th any questions or concerns. On the day of discharge, she has a white count of 23,100, hemoglobin 8 .2, platelet count 92,000. Sodium 132, potassium 4.2, and creatinine 1.65. This creatinine is aroun d her baseline. Her creatinine during this hospitalization peaked at 2.28. DISCHARGE DESTINATION: [facility]. TOTAL AMOUNT OF TIME SPENT COORDINATING THIS DISCHARGE: 33 minutes.
== END 2017-10-06 15:16 | DRG 603 ==
LOC: ERS 12:13 → T4-B 14:46
PROVIDERS: ADMIT Family Medicine; ATTEND Family Medicine
PROC: 30233N1 Transfusion of Nonautologous Red Blood Cells into Peripheral Vein, Percutaneous Approach (ICD-10-PCS; principal; 2017-10-01)
DX: L03.116 Cellulitis of left lower limb (principal); E44.0 Moderate protein-calorie malnutrition; N17.9 Acute kidney failure, unspecified; N18.4 Chronic kidney disease, stage 4 (severe); D53.9 Nutritional anemia, unspecified; Z68.1 Body mass index [BMI] 19.9 or less, adult; I12.9 Hypertensive chronic kidney disease with stage 1 through stage 4 chronic kidney disease, or unspecified chronic kidney disease; M06.9 Rheumatoid arthritis, unspecified; D46.9 Myelodysplastic syndrome, unspecified; Z91.81 History of falling; Z79.52 Long term (current) use of systemic steroids; Z79.899 Other long term (current) drug therapy; Z96.641 Presence of right artificial hip joint
CPT/HCPCS: 36415; 36430; 71045; 72170; 80048; 80053; 80202; 82306; 82553; 82607; 82746; 83516; 83520; 83605; 83880; 84443; 84484; 85007; 85025; 85027; 85652; 86038; 86140; 86160; 86200; 86225; 86235; 86376; 86694; 86695; 86696; 86850; 86900; 86901; 87040; 96365; 96366; 96375; A4216; G8978-GP-CM; G8979-GP-CK; G8996-GN-CJ; G8997-GN-CI; G8997-GN-CJ; J0696; J0885; J1650; J1940; J2543; J3370; J3490; J7050; J7620; P9016

== ENCOUNTER 2017-10-14 15:29 | Observation (INO) | payer MEDICARE ==
--- NOTE | 2017-10-14 16:00 | RAD ---
FRONTAL VIEW CHEST: 10/14/17 COMPARISON: 10/02/17 INDICATION: Dyspnea. FINDINGS: redemonstration of bibasilar pleural and parenchymal opacities. Slight interval decrease in conspicui ty of prior focal opacity at the inferolateral left lung with residual predominantly linear density n ow present in this region. Redemonstration of patchy density at the lateral right mid lung zone. Card iac silhouette is prominent as is pulmonary vasculature. IMPRESSION: There is redemonstration of pleural fluid bilaterally with adjacent atelectasis and/or pneumonia. Add itional scattered pulmonary parenchymal opacities are redemonstrated as above. Continued imaging followup is warranted. POS: RANJAN
[2017-10-14 16:01] LABS: Hemoglobin 7.8 g/dL (12.0-16.0); Mean Corpuscular HGB CONC 29.1 g/dL (32.0-36.0); Mean Corpuscular Hemoglobin 28.3 pg (27.0-31.0); Mean Corpuscular Volume 97.1 fl (81.0-99.0); Platelet Count 124 thou/uL (130-400); RBC Distribution Width 25.7 % (11.5-14.5); Red Blood Cell (RBC) Count 2.77 mill/uL (4.20-5.40); White Blood Cell (WBC) Count 29.9 thou/uL (4.8-10.8)
[2017-10-14 16:18] LABS: CKMB 3.3 ng/mL (0-6.6); Troponin I Less than 0.010 ng/mL (< 0.028)
[2017-10-14 16:23] LABS: ALT (SGPT) 15 U/L (8-55); AST (SGOT) 51 U/L (5-34); Albumin 3.3 g/dL (3.4-4.8); Alkaline Phosphatase 124 U/L (40-150); Anion Gap 15 mmol/L (10-20); BUN (Urea Nitrogen) 59 mg/dL (9.8-20.1); Bilirubin, Total 0.9 mg/dL (0.2-1.2); Calc. Creatinine Clearance 0 mL/min (70-130); Calcium 10.5 mg/dL (7.8-10.44); Carbon Dioxide 26 mmol/L (23-31); Chloride 97 mmol/L (98-107); Estimated GFR-MDRD 30; Globulin 5.9 g/dL (2.4-3.5); Glucose 93 mg/dL (83-110); Protein, Total 9.2 g/dL (6.0-8.3); Sodium 132 mmol/L (136-145)
[2017-10-14 16:32] LABS: Anisocytosis SLIGHT = 6-15 cells (100X) (0-5/hpf); Band 3 % (5-11); Eosinophils 1 % (0-10); Lymphocytes 23 % (21-51); MDiff Complete? YES; Metamyelocyte 7 % (0-0); Monocytes 14 % (0-10); Myelocyte 10 % (0-0); Neutrophil 38 % (42-75); Nucleated RBC 9 % (0); PLT Morphology Comment Appears Decreased; Reactive Lymphocytes 4 % (0-10)
[2017-10-14] MEDS ORDERED: Piperacillin/Tazobactam 4.5 GM in Sodium Chloride 0.9% 100 ML IVPB SCH (16:45)
[2017-10-14 18:38] LABS: Bilirubin Negative (Negative); Blood, Urine Negative (Negative); Clarity CLOUDY (Clear); Glucose, Urine (Dipstick) Negative (Negative); Leukocyte Negative (Negative); Nitrite Negative (Negative); Protein, Urine (Dipstick) 100 mg/dL (Neg-Trace); Specific Gravity, Urine 1.015 (1.002-1.036); Urobilinogen 0.2 mg/dL (0.2-1.0)
[2017-10-14 18:40] LABS: Bacteria/HPF None Seen HPF (None Seen); Hyaline Casts/LPF 4-6 HYALINE CAST LPF (0-3 Hyaline); Pathc Cast-AUWi Flag 1.49 (0-2.49); RBC/HPF 0-3 HPF (0-3); Squamous Epithelial 0-3 HPF (0-3); WBC/HPF 0-3 HPF (0-3)
[2017-10-14 18:46] LABS: Anion Gap 10 mmol/L (10-20); BUN (Urea Nitrogen) 62 mg/dL (9.8-20.1); Calc. Creatinine Clearance 0 mL/min (70-130); Calcium 9.7 mg/dL (7.8-10.44); Carbon Dioxide 31 mmol/L (23-31); Chloride 99 mmol/L (98-107); Estimated GFR-MDRD 32; Glucose 118 mg/dL (83-110); Potassium 5.3 mmol/L (3.5-5.1); Sodium 135 mmol/L (136-145)
[2017-10-14 18:50] LABS: Crystals/HPF RARE CA OXALATE HPF (Negative)
[2017-10-14] MEDS ORDERED: Furosemide 40 MG/4 ML VIAL ONE (19:43)
[2017-10-15] MEDS ORDERED: hydrALAZINE 20 MG/ML VIAL SLOW IVP PRN (02:05)
[2017-10-15] MEDS ORDERED: Ondansetron HCl/PF 4 MG/2 ML Vial IVP PRN (02:05)
[2017-10-15] MEDS ORDERED: Ondansetron ODT 4 MG TAB PO PRN (02:05)
[2017-10-15] MEDS ORDERED: cloNIDine 0.1 MG TAB PO PRN (02:05)
[2017-10-15] MEDS ORDERED: Nitroglycerin 0.4 MG TAB (25 Tab Bottle) SL PRN (02:05)
[2017-10-15] MEDS ORDERED: Acetaminophen 500 MG TAB PO PRN (02:05)
--- NOTE | 2017-10-15 03:05 | HP ---
DATE OF ADMISSION: 10/14/2017 PRIMARY CARE PHYSICIAN: Dr. Mame Jo. CHIEF COMPLAINT: Shortness of breath. HISTORY OF PRESENT ILLNESS: This is an 87-year-old female who presents from [facility], where she is a current resident after complaining of increased shortness of breath. Patient was recently admitted from 09/28/2017 to 10/06/2017 for cellulitis of left lower extremity, severe decond itioning, myelodysplastic syndrome, and moderate protein-calorie malnutrition. Patient was discharge d to [facility] to continue antibiotic therapy for the left lower extremity edema with doxycycl ine and to receive ongoing physical therapy. Patient apparently had complained of increased shortnes s of breath in the last 24 hours with EMS dispatched to transfer the patient to the emergency room. Patient was noted with an elevated white blood cell count of 25,000 and hemoglobin of 6.9. Review of the electronic medical record shows myelodysplastic syndrome with similar values noted over the last 3-4 years. Patient was noted with 94% oxygen saturation on 2 liters per minute by nasal cannula and continued with oxygen supplementation after admission to the emergency room. Patient underwent ches t imaging showing bilateral pleural effusions with associated atelectasis. Patient received IV Lasix 40 mg x1 dose in addition to Zosyn, vancomycin, Levaquin, and intravenous normal saline at 500 mL. Patient was transferred to the stroke unit for further evaluation. PAST MEDICAL HISTORY: 1. Status post eight-day hospitalization at [facility] 09/28/2017 through . 2. Left lower extremity cellulitis, slow clinical improvement. 3. Severe deconditioning. 4. Myelodysplastic syndrome. 5. History of hyperkalemia. 6. Hypertension. 7. 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 9. Rheumatoid arthritis. 10. History of multiple falls. 11. Chronic macrocytic anemia. PAST SURGICAL HISTORY: 1. Status post right total hip arthroplasty. 2. Status post section. 3. Status post right femur repair with open reduction and internal fixation. CURRENT MEDICATIONS: 1. Proventil HFA 2 puffs inhaled q.4 hours p.r.n. 2. Doxycycline 100 mg p.o. b.i.d. 3. Ferrous gluconate 324 mg p.o. b.i.d. 4. Lasix 40 mg one tab p.o. daily. 5. Hydralazine 25 mg p.o. daily. 6. Plaquenil 200 mg p.o. b.i.d. 7. Metoprolol tartrate 100 mg p.o. b.i.d. 8. Multivitamin 1 tab p.o. daily. 9. Ditropan XL 10 mg p.o. b.i.d. 10. K-Dur 20 mEq p.o. q.a.m. 11. Prednisone 5 mg p.o. daily. ALLERGIES: No known drug allergies. FAMILY HISTORY: No inheritable diseases per patient report. SOCIAL HISTORY: Patient resides at [facility] in [place], [place]. No current alcohol, tobacco, o r illicit drug use. Requires 1-2 person assistance for short distance transfers and wheelchair use f or long-distance mobilization. History of multiple falls and hip fractures. REVIEW OF SYSTEMS: The following complete review of systems was otherwise negative, except as stated per HPI: Constitutional: Weight loss or gain, ability to conduct usual activities. Skin: Rash, i tching. Eyes: Double vision, pain. ENT/Mouth: Nose bleeding, neck stiffness, pain, tenderness. C ardiovascular: Palpitations, dyspnea on exertion, orthopnea. Respiratory: Shortness of breath, whe ezing, cough, hemoptysis, fever, or night sweats. Gastrointestinal: Poor appetite, abdominal pain, heartburn, nausea, vomiting, constipation, or diarrhea. Genitourinary: Urgency, frequency, dysuria, nocturia. Musculoskeletal: Pain, swelling. Neurologic/Psychiatric: Anxiety, depression. Allergy /Immunologic: Skin rash, bleeding tendency. PHYSICAL EXAMINATION: VITAL SIGNS: On admission blood pressure 162/72, pulse 70, respiratory rate 18, temperature 97.3 deg prosper Fahrenheit, O2 saturation is 100% on 3 liters per minute by nasal cannula. GENERAL APPEARANCE: This is an 87-year-old frail appearing female in no acute distress. HEENT: Pupils are equal, round, and reactive to light and accommodation. Extraocular muscles are in tact. No scleral icterus, no conjunctival injection. Nares patent. OP is clear. NECK: Supple, no cervical adenopathy, no thyromegaly, no carotid bruits, no JVD appreciated. Cervic al spine with full active and passive range of motion. No meningeal signs appreciated. CHEST: Diminished breath sounds in the bases bilaterally. CARDIOVASCULAR: S1, S2, without noted murmur. ABDOMEN: Rounded, soft, nontender, nondistended. Bowel sounds are positive in all four quadrants. There is no hepatosplenomegaly, no abdominal bruits, no rebound or guarding appreciated. EXTREMITIES: Left lower extremity with persistent erythema of the distal extremity and dorsum of the foot. Pulses palpable distally at the dorsalis pedis, posterior tibial, and popliteal arteries bila terally. Capillary refill less than 2 seconds. NEUROLOGIC: Cranial nerves II-XII are grossly intact. No focal or lateralizing signs appreciated. Patient is not observed ambulatory during this exam. PERTINENT LABORATORY AND X-RAY FINDINGS: Sodium 132, potassium 6.0, chloride 97, CO2 of 26, anion ga p of 15, BUN 59, creatinine 1.62 with estimated GFR of 30, glucose 93, lactic acid level 0.6, calcium 10.5. AST 51, ALT of 15, alkaline phosphatase 124, troponin I negative x1. BNP 1659 previously not ed on 09/28/2017 of 1468, albumin 3.3. CBC showed a white blood cell count of 29.9, hemoglobin 7.8, hematocrit 27, platelet count 124 with 38% neutrophils. Portable chest x-ray dated 10/14/2017 showed bilateral pleural fluid with associated atelectasis. EKG dated 10/14/2017 by my interpretation show s sinus mechanism with heart rates in the 80s. Attenuated R waves in the precordial leads. Normal a xis. No acute ST-T wave changes appreciated. ASSESSMENT AND PLAN: 1. Acute on questionable chronic dyspnea. Patient placed on oxygen supplementation. We will contin ue oxygen supplementation to maintain O2 saturations greater than or equal to 90%. Suspect presentat ion consistent with volume overload and questionable congestive heart failure. 2. Question of new-onset congestive heart failure. We will obtain 2D transthoracic echocardiogram f or evaluation of ejection fraction. Continue Lasix 40 mg b.i.d. Continue to monitor daily weight an d I's and O's. 3. Left lower extremity cellulitis, improved overall; however, we will continue intravenous Zosyn 3. 375 grams IV q.6 hours. Continue to monitor clinical response. 4. Myelodysplastic syndrome. Stable currently. No evidence to suggest acute clinical decompensatio n. Follow serial CBC trend. 5. Severe deconditioning. PT for mobilization. Two-person assist. Plan for return to [facility] for ongoing supervised care on discharge. 6. [id number] protein-calorie malnutrition. We will continue Ensure Enlive b.i.d. 7. Hypertension. Resume home antihypertensive regimen and monitor clinical response. 8. Prophylaxis. We will hold sequential compression devices due to left lower extremity cellulitis. Lovenox 30 mg subcutaneously daily. 9. Code status is DO NOT RESUSCITATE. Confirmed with the patient in recent admission 09/28/[address] [facility] 10/06/2017.
[2017-10-15 05:08] LABS: Anion Gap 14 mmol/L (10-20); BUN (Urea Nitrogen) 59 mg/dL (9.8-20.1); Calc. Creatinine Clearance 18 mL/min (70-130); Calcium 9.8 mg/dL (7.8-10.44); Carbon Dioxide 28 mmol/L (23-31); Chloride 98 mmol/L (98-107); Estimated GFR-MDRD 33; Glucose 74 mg/dL (83-110); Potassium 4.7 mmol/L (3.5-5.1); Sodium 135 mmol/L (136-145)
[2017-10-15] MEDS: Furosemide 20 MG/2 ML VIAL SLOW IVP SCH ×2 (05:12→18:34)
[2017-10-15] MEDS: Piperacillin/Tazobactam 3.375 GM in Sodium Chloride 0.9% 100 ML IVPB SCH ×3 (05:14→18:34)
[2017-10-15 05:20] LABS: Acanthocytes SLIGHT = 1-5 cells (100X) (None Seen); Anisocytosis MODERATE=16-30 cells (100X) (0-5/hpf); Band 7 % (5-11); Basophilic Stippling SLIGHT = 1-2 cells (100X) (None Seen); Elliptocytes SLIGHT = 2-5 cells (100X) (0-1/hpf); Hemoglobin 7.3 g/dL (12.0-16.0); Lymphocytes 17 % (21-51); MDiff Complete? YES; Mean Corpuscular HGB CONC 31.3 g/dL (32.0-36.0); Mean Corpuscular Hemoglobin 30.7 pg (27.0-31.0); Mean Corpuscular Volume 98.3 fl (81.0-99.0); Metamyelocyte 6 % (0-0); Microcytosis SLIGHT = 6-15 cells (100X) (0-5/hpf); Monocytes 33 % (0-10); Myelocyte 10 % (0-0); Neutrophil 27 % (42-75); Nucleated RBC 3 % (0); Platelet Count 100 thou/uL (130-400); RBC Distribution Width 25.4 % (11.5-14.5); Red Blood Cell (RBC) Count 2.36 mill/uL (4.20-5.40); Tear Drops SLIGHT = 2-5 cells (100X) (0-1/hpf); White Blood Cell (WBC) Count 27.1 thou/uL (4.8-10.8)
[2017-10-15 08:22] VITALS: BMI 16.7
[2017-10-15] MEDS: Aspirin 81 mg Enteric Coated Tablet PO SCH (09:57)
[2017-10-15] MEDS: Famotidine 20 MG TAB PO SCH ×2 (09:57→21:54)
--- NOTE | 2017-10-15 14:19 | PDOC.PN ---
- Subjective Encounter Start Date: 10/15/17 Encounter Start Time: 14:17 Ms. Alexander was seen today in follow-up. she says she is still short of breath, but feels a little better. She is also still quite weak. - Objective Resuscitation Status: Resuscitation Status DNR:Do Not Resuscitate MAR Reviewed: Yes Vital Signs & Weight: Vital Signs (12 hours) Temp Pulse Pulse Pulse Resp BP BP 10/15/17 11:40 97.6 F 70 20 10/15/17 09:56 10/15/17 09:18 65 70 155/71 H 10/15/17 08:00 96.6 F L 60 18 163/68 H 10/15/17 03:46 96.6 F L 60 18 144/63 H BP Pulse Ox Pulse Ox Pulse Ox 10/15/17 11:40 100 10/15/17 09:56 85 L 10/15/17 09:18 148/66 H 100 98 10/15/17 08:00 100 10/15/17 03:46 100 Weight Admit Weight 100 lb 6.4 oz Weight 94 lb 6.4 oz I&O: 10/14/17 10/15/17 10/16/17 06:59 06:59 06:59 Intake Total 230 Balance 230 Result Diagrams: 10/15/17 04:34 10/15/17 04:34 Phys Exam - Physical Examination HEENT: PERRLA Respiratory: no wheezing, no rales, no rhonchi, clear to auscultation bilateral Cardiovascular: RRR, no significant murmur Gastrointestinal: soft, non-tender, positive bowel sounds Musculoskeletal: edema present + mild erythema in the left low extremity, no warmth Dx/Plan (1) Acute on chronic diastolic heart failure Code(s): I50.33 - ACUTE ON CHRONIC DIASTOLIC (CONGESTIVE) HEART FAILURE Status : Acute (2) Anemia Code(s): D64.9 - ANEMIA, UNSPECIFIED Status: Acute (3) Cellulitis of left lower extremity Code(s): L03.116 - CELLULITIS OF LEFT LOWER LIMB Status: Acute (4) HTN (hypertension) Code(s): I10 - ESSENTIAL (PRIMARY) HYPERTENSION Status: Chronic Qualifiers: Hypertension type: essential hypertension Qualified Code(s): I10 - Essential (primary) hypertension (5) Myelodysplasia (myelodysplastic syndrome) Code(s): D46.9 - MYELODYSPLASTIC SYNDROME, UNSPECIFIED Status: Chronic (6) Normocytic anemia Code(s): D64.9 - ANEMIA, UNSPECIFIED Status: Chronic Comment: Serial monitoring - Plan * Acute on chronic diastolic heart failure- will continue Lasix IV * Echo is pending * Chronic normocytic anemia - this is likley due to Myelodysplastic syndrome- will transfuse as she is still symptomatic * Cellulitis of the left leg- continue IV Zosyn . * Leukocytosis- likely due to Myelodysplasia, and this is chronic
[2017-10-15] MEDS ORDERED: PROVENTIL INHALER 6.7 G (200 INHALATIONS) INH PRN (14:27)
[2017-10-15] MEDS ORDERED: Metoprolol Tartrate 50 MG TAB PO SCH (21:00)
[2017-10-15] MEDS: Ferrous Gluconate 324 MG TAB PO SCH (21:54)
[2017-10-15] MEDS: Hydroxychloroquine Sulfate 200 MG TAB PO SCH (21:54)
[2017-10-15] MEDS: hydrALAZINE 25 MG TAB PO SCH (21:54)
[2017-10-15] MEDS: Metoprolol Tartrate 100 MG TAB PO SCH (21:54)
[2017-10-15] MEDS: Oxybutynin ER 5 MG TAB PO SCH (21:58)
[2017-10-16] MEDS: Piperacillin/Tazobactam 3.375 GM in Sodium Chloride 0.9% 100 ML IVPB SCH (01:11)
[2017-10-16 04:54] VITALS: TEMP 97.4
[2017-10-16] MEDS: Furosemide 20 MG/2 ML VIAL SLOW IVP SCH (05:55)
[2017-10-16] MEDS ORDERED: Piperacillin/Tazobactam 3.375 GM in Sodium Chloride 0.9% 100 ML IVPB SCH (06:00)
[2017-10-16 06:07] LABS: Anion Gap 15 mmol/L (10-20); BUN (Urea Nitrogen) 64 mg/dL (9.8-20.1); Calc. Creatinine Clearance 17 mL/min (70-130); Calcium 9.8 mg/dL (7.8-10.44); Carbon Dioxide 28 mmol/L (23-31); Chloride 99 mmol/L (98-107); Estimated GFR-MDRD 30; Glucose 89 mg/dL (83-110); Potassium 4.6 mmol/L (3.5-5.1); Sodium 137 mmol/L (136-145)
[2017-10-16 07:35] LABS: Hemoglobin 8.5 g/dL (12.0-16.0); Mean Corpuscular HGB CONC 31.9 g/dL (32.0-36.0); Mean Corpuscular Hemoglobin 30.1 pg (27.0-31.0); Mean Corpuscular Volume 94.3 fl (81.0-99.0); Platelet Count 100 thou/uL (130-400); RBC Distribution Width 21.1 % (11.5-14.5); Red Blood Cell (RBC) Count 2.82 mill/uL (4.20-5.40); White Blood Cell (WBC) Count 19.9 thou/uL (4.8-10.8)
[2017-10-16 08:29] LABS: Band 15 % (5-11); Lymphocytes 18 % (21-51); MDiff Complete? YES; Metamyelocyte 1 % (0-0); Monocytes 30 % (0-10); Myelocyte 14 % (0-0); Neutrophil 17 % (42-75); Nucleated RBC 2 % (0); PLT Morphology Comment Appears Decreased; Polychromasia SLIGHT = 2-3 cells (100X) (0-2/hpf); Reactive Lymphocytes 5 % (0-10)
[2017-10-16] MEDS ORDERED: Saccharomyces boulardii 250 MG CAP PO SCH (09:00)
[2017-10-16] MEDS ORDERED: Multivitamin W/ Minerals 1 TAB PO SCH (09:00)
[2017-10-16] MEDS ORDERED: predniSONE 5 MG TAB PO SCH (09:00)
[2017-10-16] MEDS: Famotidine 20 MG TAB PO SCH (09:07)
[2017-10-16] MEDS: Aspirin 81 mg Enteric Coated Tablet PO SCH (09:07)
[2017-10-16] MEDS: Ferrous Gluconate 324 MG TAB PO SCH (09:07)
[2017-10-16] MEDS: hydrALAZINE 25 MG TAB PO SCH (09:08)
[2017-10-16] MEDS: Hydroxychloroquine Sulfate 200 MG TAB PO SCH (09:08)
[2017-10-16] MEDS: Metoprolol Tartrate 100 MG TAB PO SCH (09:08)
[2017-10-16] MEDS: Oxybutynin ER 5 MG TAB PO SCH (09:08)
[2017-10-16] MEDS ORDERED: Piperacillin/Tazobactam 2.25 GM in Sodium Chloride 0.9% 100 ML IVPB SCH (12:00)
--- NOTE | 2017-10-16 12:03 | PDOC.PN ---
- Subjective Encounter Start Date: 10/16/17 Encounter Start Time: 12:00 Ms. Alexander was seen today in follow-up. she is feeling a little better today than yesterday. She is still a bit short of breath, but she feels better when she is sitting up in a chair. - Objective Resuscitation Status: Resuscitation Status DNR:Do Not Resuscitate MAR Reviewed: Yes Vital Signs & Weight: Vital Signs (12 hours) Temp Pulse Resp BP BP Pulse Ox 10/16/17 09:08 67 148/65 H 10/16/17 07:30 97.4 F L 70 16 10/16/17 07:23 97.5 F L 67 20 148/65 H 93 L 10/16/17 04:00 97.4 F L 70 16 140/63 96 10/16/17 01:11 98 Weight Admit Weight 100 lb 6.4 oz Weight 94 lb 6.4 oz I&O: 10/15/17 10/16/17 10/17/17 06:59 06:59 06:59 Intake Total 230 1120 300 Balance 230 1120 300 Result Diagrams: 10/16/17 05:08 10/16/17 05:08 Phys Exam - Physical Examination HEENT: PERRLA Respiratory: no wheezing, no rales, no rhonchi, clear to auscultation bilateral Cardiovascular: RRR, no significant murmur, no rub Gastrointestinal: soft, non-tender, positive bowel sounds Musculoskeletal: edema present + lower extremity edema, mild erythema L>R Dx/Plan (1) Acute on chronic diastolic heart failure Code(s): I50.33 - ACUTE ON CHRONIC DIASTOLIC (CONGESTIVE) HEART FAILURE Status : Acute (2) Anemia Code(s): D64.9 - ANEMIA, UNSPECIFIED Status: Acute (3) Cellulitis of left lower extremity Code(s): L03.116 - CELLULITIS OF LEFT LOWER LIMB Status: Acute (4) HTN (hypertension) Code(s): I10 - ESSENTIAL (PRIMARY) HYPERTENSION Status: Chronic Qualifiers: Hypertension type: essential hypertension Qualified Code(s): I10 - Essential (primary) hypertension (5) Myelodysplasia (myelodysplastic syndrome) Code(s): D46.9 - MYELODYSPLASTIC SYNDROME, UNSPECIFIED Status: Chronic (6) Normocytic anemia Code(s): D64.9 - ANEMIA, UNSPECIFIED Status: Chronic Comment: Serial monitoring - Plan * Dyspnea- suspect an exacerbation of diastolic heart failure- await Echo results * Cellulitis- continue IV Zosyn * Anemia- hemoglobin has improved after transfusion- likely from Myelodysplastic Syndrome * She can likely be transitioned back to the long-term facility later today..
[2017-10-16 12:22] VITALS: BP 149/64
[2017-10-16] MEDS ORDERED: Furosemide 40 MG/4 ML VIAL SLOW IVP SCH (14:00)
--- NOTE | 2017-10-16 23:36 | DIS ---
PRIMARY CARE PHYSICIAN: Dr. Jo. DATE OF ADMISSION: 10/14/2017 DATE OF DISCHARGE: 10/16/2017 DISCHARGE DISPOSITION: To [facility]. DISCHARGE DIAGNOSES: 1. Acute on chronic heart failure with preserved ejection fraction. 2. Cellulitis of the left lower extremity. 3. Severe deconditioning. 4. Myelodysplasia. 5. Acute on chronic anemia, secondary to myelodysplasia. 6. Hypertension. 7. Chronic kidney disease, stage 3, history of Bright's disease. 8. Rheumatoid arthritis. DISCHARGE MEDICATIONS: She is to continue Zosyn 2.25 grams IV q.8 hours for 5 additional days, to co ntinue Florastor 250 mg daily, prednisone 5 mg daily, potassium chloride 20 mEq daily, Ditropan XL 10 mg twice a day, multivitamin once a day, Lopressor 100 mg twice a day, Plaquenil 200 mg twice daily, Apresoline 25 mg twice a day, Lasix 40 mg daily, ferrous gluconate 324 mg twice a day and Proventil inhaler 2 puffs q.4 hours as needed. PROCEDURES DONE DURING THE ADMISSION: The patient had an echocardiogram in which the left ventricula r size was normal. The ejection fraction was estimated at 60% to 65%. There was normal right ventri cular size and function. She has moderate to severe mitral regurgitation and a structurally normal a ortic valve. CODE STATUS: DNR. HOSPITAL COURSE: Ms. Alexander is a pleasant 87-year-old female that came to the emergency room after she was just released from the hospital. She had been in the group home home and complained of shortness of breath. She was sent over and found to have evidence of volume overload with pulmonary infiltrates as well as a pleural effusion. She was started on IV Lasix and diuresed overnight. She was also found to be fairly severely anemic and was given 1 unit transfusion to help with her oxygen carrying capacity as well. The following day, she was symptomatically improved and as such will be t ransferred back to the [facility] to continue her treatment for cellulitis as well as continu e Lasix for the acute on chronic diastolic heart failure.
== END 2017-10-16 16:51 ==
LOC: ERS 15:29 → 2SE 21:31
PROVIDERS: ADMIT Internal Medicine; ATTEND Internal Medicine
DX: I13.0 Hypertensive heart and chronic kidney disease with heart failure and stage 1 through stage 4 chronic kidney disease, or unspecified chronic kidney disease (principal); N18.3 Chronic kidney disease, stage 3 (moderate); I50.33 Acute on chronic diastolic (congestive) heart failure; D46.9 Myelodysplastic syndrome, unspecified; D63.1 Anemia in chronic kidney disease; D53.9 Nutritional anemia, unspecified; M06.9 Rheumatoid arthritis, unspecified; L03.116 Cellulitis of left lower limb; E44.0 Moderate protein-calorie malnutrition; Z68.1 Body mass index [BMI] 19.9 or less, adult; Z96.641 Presence of right artificial hip joint; Z98.890 Other specified postprocedural states; Z79.52 Long term (current) use of systemic steroids; Z79.2 Long term (current) use of antibiotics; Z79.899 Other long term (current) drug therapy; Z66 Do not resuscitate
CPT/HCPCS: 36430; 51701; 71045; 80048 ×3; 80053; 82553; 83605; 83880; 84484; 85007; 85025 ×2; 85027; 86850; 86900; 86901; 86920; 87040; 93005; 93306; 93798; 94760; 96365; 96366 ×2; 96367; 96374; 96376 ×2; 97139; 99285; G0378; P9016; 36415; 81003; 81015; 85060; A4353; J1940; J1956; J2543; J3370; J7050